=== PATIENT | male | born 1945 | race Caucasian/White ===

== ENCOUNTER 2019-08-06 08:14 | Outpatient (CLI) | payer MEDICARE, OTHER, SELFPAY ==
[2019-08-06] MEDS: goserelin acetate 10.8 mg Implant IM (08:59)
== END 2019-08-06 08:15 | disposition home or self-care (01) ==
LOC: ONCMED 08:21
PROVIDERS: Family Provider Family Medicine; PCP Family Medicine; Visit Provider Nurse Practitioner
DX: C61 Malignant neoplasm of prostate (principal); Z79.818 Long term (current) use of other agents affecting estrogen receptors and estrogen levels
CPT/HCPCS: 96372; 96402; J9202

== ENCOUNTER 2019-11-09 08:49 | Outpatient (CLI) | payer MEDICARE, OTHER, SELFPAY ==
[2019-11-09 10:04] LABS: Basophils % 0.7 %; Eosinophils # 0.3 10^3/uL (0.0-0.8); Eosinophils % 6.4 %; Hematocrit 42.4 % (42.0-52.0); Hemoglobin 14.1 g/dL (11.7-16.6); Lymphocytes # 1.4 10^3/uL (0.8-4.8); Lymphocytes % 32.9 %; Mean Corpuscular HGB Conc 33.3 g/dL (30.0-36.0); Mean Corpuscular Hemoglobin 30.3 pg (28.0-34.0); Mean Platelet Volume 11.8 fL (7.4-10.4); Monocytes # 0.4 10^3/uL (0.2-0.9); Monocytes % 9.6 %; Neutrophils # 2.2 10^3/uL (1.8-7.7); Neutrophils % 50.2 %; Nucleated Red Blood Cells % 0 %; Platelet Count 155 10^3/cmm (130-400); Red Blood Count 4.66 10^6/uL (4.1-5.3); Red Cell Distribution Width 11.9 % (12.1-15.1); White Blood Count 4.4 10^3/uL (4.0-10.0)
[2019-11-09 10:19] LABS: Prostate Specific Antigen < 0.02 ng/mL (0-4)
[2019-11-09 10:31] LABS: Alanine Aminotransferase 21 U/L (0-41); Albumin Level 4.2 g/dL (3.5-5.2); Alkaline Phosphatase 52 IU/L (40-130); Anion Gap 16.1 (5-19); Aspartate Amino Transferase 19 U/L (0-40); Blood Urea Nitrogen 18 mg/dL (8-23); Calcium 9.4 mg/dL (8.5-10.5); Carbon Dioxide 25 mmol/L (22-29); Chloride 103 mmol/L (98-107); Globulin 2.2 g/dL (1.3-4.6); Glucose 77 mg/dL (65-115); Osmolality Calculated 285 mOsm/kg (285-295); Potassium 4.1 mmol/L (3.5-5.1); Sodium 140 mmol/L (136-145); Total Bilirubin 0.7 mg/dL (0.15-1.2); Total Protein 6.4 g/dL (6.6-8.7)
[2019-11-09 10:45] LABS: Testosterone Total < 2.5 ng/dL (193-740)
[2019-11-09] MEDS: lidocaine 1% INJ 20 mL INJECTION (11:03)
--- NOTE | 2019-11-09 11:04 | ONC FU_ITS ---
Dr. Hoang Patient Follow-Up Note Patient: Byron Warner Unit #: [id number]: 1945 Dicatated By: Valeriano Hoang M.D.Date of Visit:Nov 09, 2019 Onc Med Follow-up/Prog Note Chief Complaint: Prostate cancer. History of Present Illness: This is a 74 year-old man with recurrent prostate cancer. He had completed definitive radiation in May 2007 for Alley score 7 (4+3) adenocarcinoma of the prostate, clinical stage II (T2b, N0). He had biopsy proven recurrence in the left lobe of the prostate in July 2009. At that time he was being considered for possible prostatectomy, but it was abandoned when he was confirmed at surgery to have an involved pelvic lymph node. He then began androgen deprivation therapy with Zoladex in combination with Casodex. Along with that he has been receiving Prolia injections for maintenance of bone health. He has otherwise been in good general health. He has no other ongoing medical illnesses. He is a nonsmoker. He is seen for a scheduled visit. He has been feeling good generally. His main complaint is that he has been having more pain in his left knee, and he thinks it is eventually going to have to be replaced. He has good energy, though, and he has normal activity. ECOG score 0. His appetite is good. He has not had fever. He does have hot flashes and sweating, but not as bad. He occasionally has a little cough. He does not complain of shortness of breath or chest pain. He has occasional episodes of nausea and diarrhea, typically associated with eating red meat. His bowels are otherwise okay. He has no other GI complaints. He has frequent urination, which is chronic. He has no other joint or bone pain. He has no focal neurologic symptoms. Medications: Casodex 50 mg - Take 1 Tablet Oral daily, Flonase Suspension Nasal PRN, Multivitamin Adult 2 Tablet Oral daily, Vitamin D 2 Tablet (of 1000 Units) Oral daily, Zoladex 3.6 mg - Use 1 Subcutaneous q 12 weeks Allergies: No Known Allergies. Review of Systems: Constitutional - His energy is good. He has normal activity. Appetite is good and weight is stable. No fever. He has hot flashes and sweating, but they are getting less frequent. ECOG score is 0, ENMT - No sinus congestion/drainage. No mouth sores. No sore throat or difficulty swallowing, Hematologic/Lymphatic - He bruises and bleeds easily, Respiratory - No shortness of breath. No cough. No pleuritic pain or hemoptysis, Cardiovascular - No angina pain. No palpitations, Gastrointestinal - He has occasional episodes of nausea and diarrhea, usually associated with eating red meat. No heartburn or acid reflux. His bowels are otherwise OK. No blood in the stool or black stools, Genitourinary (M) - He has urinary frequency. No dysuria or hematuria. No urgency or incontinence, Musculoskeletal - He has been having more pain in his left knee, Integumentary - No skin complications, Neurologic - No headache or dizziness. He has occasional lightheadedness. No numbness/paresthesias or other focal neurologic symptoms, Psychiatric - No anxiety or depression. No insomnia. Vital Signs: Performed on Nov 09, 2019 09:48 Height - 72.00 in Weight - 255.8 lbs (LOW) BSA - 2.37 sq.m BMI - 34.69 (HIGH) Temperature - 98 F (LOW) Pulse - 61 /min Respiration - 17 /min BP - 112/68 mm(hg) O2 Sat - 98 % Pain - 0 Fatigue - 0 Physical Examination: Constitutional - He looks good generally, Eyes - Sclerae nonicteric. Conjunctivae clear, ENMT - No lesions noted in the oral cavity, Hematologic/Lymphatic - No cervical, clavicular, or axillary adenopathy, Respiratory - Lungs are clear with good air movement bilaterally, Cardiovascular - Heart rhythm is regular. There is no murmur, gallop, or rub noted, Abdomen - Soft. Liver and spleen are not enlarged. There is no abdominal mass or ascites noted and there is no inguinal adenopathy, Extremities - No edema, Neurologic - No focal neurologic deficits noted. Lab/Imaging: Test performed on Nov 09, 2019 09:08 Sodium 140 mmol/L Testosterone, Total < 2.5 ng/dL Potassium 4.1 mmol/L Chloride 103 mmol/L CO2 25 mmol/L Anion Gap 16.1 BUN 18 mg/dL Creatinine 0.8 mg/dL Cr Clearance (Est) 130.9400 mL/min Glucose 77 mg/dL Calcium 9.4 mg/dL Protein, Total 6.4 g/dL Albumin 4.2 g/dL Globulin 2.2 g/dL Bilirubin, Total 0.7 mg/dL ALT (SGPT) 21 U/L AST (SGOT) 19 U/L Alkaline Phosphatase 52 IU/L WBC 4.4 10 3/uL RBC 4.66 10 6/uL HGB 14.1 g/dL HCT 42.4 % MCV 91.0 fL MCH 30.3 pg MCHC 33.3 g/dL RDW 11.9 % Platelet Count 155 10 3/cmm MPV 11.8 fL Neutrophils 2.2 10 3/uL Lymphocytes 1.4 10 3/uL Monocytes 0.4 10 3/uL Eosinophils 0.3 10 3/uL Basophils 0.0 10 3/uL Neutrophil % 50.2 % Lymphocyte % 32.9 % Monocyte % 9.6 % Eosinophil % 6.4 % Basophils % 0.7 % PSA < 0.02 ng/mL Impression: 1. Patient with biopsy proven recurrent prostate cancer in 2009 following definitive radiation, which he had completed in May 2007. 2. His disease has been well-controlled on androgen deprivation therapy. 3. He is at risk for osteoporosis due to the androgen deprivation therapy. He is being treated with Prolia for maintenance of bone health. 4. Some of his previous bloods counts have shown borderline low platelet counts. The cause/clinical significance of that finding has been uncertain. 5. He was found to have vitamin D deficiency. He has had a very good response to androgen deprivation therapy with Zoladex in combination with bicalutamide, which he tolerates very well. During follow-up his PSA level has remained adequately suppressed and his overall clinical status remained stable. Plan: He will be given Zoladex 10.8 mg by subcutaneous injection. He continues bicalutamide 50 mg daily. He will be given Prolia 60 mg by subcutaneous injection for maintenance of bone health. He will continue his vitamin D supplementation. He will be scheduled for a Zoladex injection in 3 months and for a followup visit in 6 months. Signed By: Valeriano Hoang M.D. <<Signature on File>>
[2019-11-09] MEDS: goserelin acetate 10.8 mg Implant IM (11:12)
[2019-11-09] MEDS: denosumab 60 mg SDV SUBCUT (11:12)
[2019-11-09 11:17] LABS: 25 Hydroxy Vitamin D 33 ng/mL (30-100)
== END 2019-11-09 08:50 | disposition home or self-care (01) ==
LOC: ONCMED 08:49
PROVIDERS: Family Provider Family Medicine; PCP Family Medicine; Visit Provider Internal Medicine Medical Oncology
DX: C61 Malignant neoplasm of prostate (principal); C77.5 Secondary and unspecified malignant neoplasm of intrapelvic lymph nodes; E55.9 Vitamin D deficiency, unspecified; Z79.818 Long term (current) use of other agents affecting estrogen receptors and estrogen levels; Z79.899 Other long term (current) drug therapy; Z92.3 Personal history of irradiation
CPT/HCPCS: 36415; 80053; 82306; 84153; 84403; 85025; 96372; 96402; 99214; J0897; J2001; J9202

== ENCOUNTER → 2019-12-09 14:33 | Outpatient (BNVA) | payer MEDICARE, OTHER, SELFPAY | PROVIDERS: Family Provider Family Medicine; PCP Family Medicine; Visit Provider Urology | DX: C61 Malignant neoplasm of prostate (principal); Z98.890 Other specified postprocedural states; Z98.52 Vasectomy status | CPT/HCPCS: 81001 ==

== ENCOUNTER 2020-02-08 08:26 | Outpatient (CLI) | payer MEDICARE, OTHER, SELFPAY ==
[2020-02-08] MEDS: lidocaine 1% INJ 20 mL INJECTION (08:52)
[2020-02-08] MEDS: goserelin acetate 10.8 mg Implant IM (09:05)
[2020-02-08 09:43] LABS: Prostate Specific Antigen < 0.006 ng/mL (0-4)
== END 2020-02-08 08:27 | disposition home or self-care (01) ==
LOC: ONCMED 08:30
PROVIDERS: PCP Family Medicine; Visit Provider Internal Medicine Medical Oncology
DX: C61 Malignant neoplasm of prostate (principal); M81.0 Age-related osteoporosis without current pathological fracture; E55.9 Vitamin D deficiency, unspecified; Z92.3 Personal history of irradiation; Z79.818 Long term (current) use of other agents affecting estrogen receptors and estrogen levels
CPT/HCPCS: 84153; 96372; 96402; J9202

== ENCOUNTER 2020-05-10 09:30 | Outpatient (CLI) | payer MEDICARE, OTHER, SELFPAY ==
[2020-05-10 10:03] LABS: Basophils % 0.6 %; Eosinophils # 0.3 10^3/uL (0.0-0.8); Eosinophils % 6.4 %; Hematocrit 44.2 % (42.0-52.0); Hemoglobin 14.7 g/dL (11.7-16.6); Lymphocytes # 1.3 10^3/uL (0.8-4.8); Lymphocytes % 27.5 %; Mean Corpuscular HGB Conc 33.3 g/dL (30.0-36.0); Mean Corpuscular Hemoglobin 30.4 pg (28.0-34.0); Mean Corpuscular Volume 91.5 fL (80-94); Mean Platelet Volume 11.6 fL (7.4-10.4); Monocytes # 0.4 10^3/uL (0.2-0.9); Monocytes % 7.6 %; Neutrophils # 2.81 10^3/uL (1.8-7.7); Neutrophils % 57.7 %; Nucleated Red Blood Cells % 0 %; Platelet Count 155 10^3/cmm (130-400); Red Blood Count 4.83 10^6/uL (4.1-5.3); Red Cell Distribution Width 11.9 % (12.1-15.1); White Blood Count 4.9 10^3/uL (4.0-10.0)
[2020-05-10 10:32] LABS: Testosterone Total 2.5 ng/dL (193-740)
[2020-05-10 10:33] LABS: Prostate Specific Antigen 0.006 ng/mL (0-4)
[2020-05-10 10:43] LABS: Alanine Aminotransferase 23 U/L (0-41); Albumin Level 4.3 g/dL (3.5-5.2); Alkaline Phosphatase 71 IU/L (40-130); Aspartate Amino Transferase 22 U/L (0-40); Blood Urea Nitrogen 15 mg/dL (8-23); Calcium 9.5 mg/dL (8.5-10.5); Carbon Dioxide 24 mmol/L (22-29); Chloride 103 mmol/L (98-107); Globulin 2.2 g/dL (1.3-4.6); Glucose 112 mg/dL (65-115); Osmolality Calculated 290 mOsm/kg (285-295); Sodium 139 mmol/L (136-145); Total Bilirubin 0.6 mg/dL (0.15-1.2); Total Protein 6.5 g/dL (6.6-8.7)
[2020-05-10 10:44] LABS: Anion Gap 16.1 (5-19); Potassium 4.1 mmol/L (3.5-5.1)
[2020-05-10] MEDS: lidocaine 1% INJ 20 mL INJECTION (11:46)
[2020-05-10] MEDS: goserelin acetate 10.8 mg Implant IM (11:57)
[2020-05-10] MEDS: denosumab 60 mg SDV SUBCUT (11:58)
--- NOTE | 2020-05-15 14:41 | ONC FU_ITS ---
[facility] Patient Note Patient: Byron Warner Unit #: [id number]: 1945 Dictated By: Shauna AlexanderDate of Visit: May 10, 2020 Onc MED Follow-Up/Prog Note Chief Complaint: Prostate cancer. History of Present Illness: Mr Warner is a 74 year-old man with recurrent prostate cancer. He had completed definitive radiation in May 2007 for [place] score 7 (4+3) adenocarcinoma of the prostate, clinical stage II (T2b, N0). He had biopsy proven recurrence in the left lobe of the prostate in July 2009. At that time he was being considered for possible prostatectomy, but it was abandoned when he was confirmed at surgery to have an involved pelvic lymph node. He then began androgen deprivation therapy with Zoladex in combination with Casodex. Along with that he has been receiving Prolia injections for maintenance of bone health. He has otherwise been in good general health. He has no other ongoing medical illnesses. He is a nonsmoker. Mr. Warner is here today for follow-up. He is due for Prolia and Zoladex. He states overall he feels really good. He has no new concerns. He is very active. He states his appetite is good. He denies any fever or chills. He has had no known Covid exposure, symptoms or personal testing. He states his breathing is good. His bowels and bladder are normal for him. He does not complain of any abnormal urinary frequency at night. He has had no hesitancy that he is aware of. He denies any lower extremity edema. He denies pain. He states he tolerated the Prolia shot well last time he did not recall any achiness or muscle pain. His ECOG is 0. Past Medical History: Past Surgical History: FLU VAC in 2019 Umbilical hernia in 2004 Zenker removal in 2004 Bunion removal in 1999 Allergies: No Known Allergies. Medications: Casodex 50 mg - Take 1 Tablet Oral daily Flonase Suspension Nasal PRN Multivitamin Adult 2 Tablet Oral daily Vitamin D 2 Tablet (of 1000 Units) Oral daily Zoladex 3.6 mg - Use 1 Subcutaneous q 12 weeks Family History: Mr. Warner's mother at age 89: esophageal cancer. Mr. Warner's father at age 88: chronic obstructive pulmonary disease. His paternal grandmother at age 94. His paternal grandfather at age 96. 1 uncle with prostate cancer with bone involvement. 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 Mr. Warner has never smoked. He drinks occasionally. Mr. Warner reports the following support systems: lives with spouse, significant other, family, or friends, lives in own house, and adequate transportation available for expected visits. His diet consists of regular meals. He indicates his activity level as: daily activities. Review Of Symptoms: Constitutional Denies fevers, chills, night sweats, excessive fatigue or weight loss. Allergic/Immunologic No reactions. Eyes Denies significant visual changes. No diplopia. No amaurosis. ENMT Denies changes in hearing, sore throat, mouth sores, difficulty or changes in swallowing ability, and/or sinus drainage. Hematologic/Lymphatic Denies easy bruising or bleeding. The patient denies any tender or palpable lymph nodes. Respiratory Denies dyspnea on exertion-unless go up the stairs too fast , Denies chest pain, cough or hemoptysis. Denies orthopnea. Cardiovascular Denies anginal chest pain, palpitations or orthopnea. Gastrointestinal Denies nausea, vomiting, diarrhea, GI bleeding, or constipation. Denies change in bowel habits and/or stool color, no heartburn or early satiety. Genitourinary (M) Denies hematuria, dysuria, increased frequency, urgency, hesitancy or incontinence. Musculoskeletal Denies joint pain, swelling or redness. No decreased range of motion. Integumentary Denies chronic rashes, inflammation, ulcerations or skin changes. Neurologic Denies headache, blurred vision, and no areas of focal weakness or numbness. Normal gait. No sensory problems. Psychiatric Denies insomnia, depression, sherine or mood swings. Vital Signs: Performed on May 10, 2020 11:14 Height - 72.00 in Weight - 256.4 lbs (HIGH) BSA - 2.37 sq.m BMI - 34.77 (HIGH) Temperature - 97.6 F (LOW) Pulse - 62 /min Respiration - 16 /min BP - 138/79 mm(hg) O2 Sat - 98 % Pain - 0,0 - Fully active, able to carry on all predisease activities without restrictions. (ECOG) Physical Examination: Constitutional Alert, oriented, no acute distress. Skin pink, warm and dry. Head Normocephalic; atraumatic. Left temporal area has a dark brown lesion approximately 1 cm in diameter. Non scaling and no drainage. No change per patient. Eyes Conjunctivae and sclerae are clear and without icterus. Pupils are reactive and equal. Neck Supple without masses or thyromegaly. No jugular venous distension. Hematologic/Lymphatic No petechiae or purpura. Respiratory Lungs are clear to auscultation without rhonchi or wheezing. Cardiovascular Regular rate and rhythm of heart without murmurs,clicks, gallops or rubs. Back/Spine Non-tender to palpation. Extremities No visible deformities, no cyanosis, clubbing or edema. Musculoskeletal No tenderness or swelling, normal range of motion without obvious weakness. Integumentary No rashes or lesions. Neurologic No sensory or motor deficits, normal cerebellar function, normal gait. Psychiatric Alert and oriented times three. Coherent speech. Verbalizes understanding of our discussions today. Laboratory:Test performed on May 10, 2020 09:44 Sodium 139 mmol/L Testosterone, Total 2.5 ng/dL Potassium 4.1 mmol/L Chloride 103 mmol/L CO2 24 mmol/L Anion Gap 16.1 BUN 15 mg/dL Creatinine 0.8 mg/dL Cr Clearance (Est) 131.24 mL/min Glucose 112 mg/dL Osmolality - Calculated 290 mOsm/kg Calcium 9.5 mg/dL Protein, Total 6.5 g/dL Albumin 4.3 g/dL Globulin 2.2 g/dL Bilirubin, Total 0.6 mg/dL ALT (SGPT) 23 U/L AST (SGOT) 22 U/L Alkaline Phosphatase 71 IU/L WBC 4.9 10 3/uL RBC 4.83 10 6/uL HGB 14.7 g/dL HCT 44.2 % MCV 91.5 fL MCH 30.4 pg MCHC 33.3 g/dL RDW 11.9 % Platelet Count 155 10 3/cmm MPV 11.6 fL Neutrophils 2.81 10 3/uL Lymphocytes 1.3 10 3/uL Monocytes 0.4 10 3/uL Eosinophils 0.3 10 3/uL Basophils 0.0 10 3/uL Neutrophil % 57.7 % Lymphocyte % 27.5 % Monocyte % 7.6 % Eosinophil % 6.4 % Basophils % 0.6 % NRBC % 0 % PSA 0.006 ng/mL Impression: 1. Patient with biopsy proven recurrent prostate cancer in 2009 following definitive radiation, which he had completed in May 2007. 2. His disease has been well-controlled on androgen deprivation therapy. 3. He is at risk for osteoporosis due to the androgen deprivation therapy. He is being treated with Prolia for maintenance of bone health. 4. Some of his previous bloods counts have shown borderline low platelet counts. The cause/clinical significance of that finding has been uncertain. 5. He was found to have vitamin D deficiency. He has had a very good response to androgen deprivation therapy with Zoladex in combination with bicalutamide, which he tolerates very well. During follow-up his PSA level has remained adequately suppressed and his overall clinical status remained stable. Plan: 1. Proceed with Zoladex 10 mg subcutaneous and continue every 3 months. 2. Continue bicalutamide 50 mg daily. 3. 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 I do not see a recent bone density study on him we will need to consider that at his 6-month follow-up. He will also continue his calcium vitamin D supplementation. He has a history of vitamin D deficiency. 4. Labs from today were reviewed in detail and discussed with Mr. Warner and a copy was given to him. WBC 4.9, hemoglobin 14.7, platelets 255,000 ANC is 2800. Potassium 4.1 creatinine 0.8 LFTs are normal and PSA is 0.006. 5. He states he already has gotten his flu shot for the year. 6. We will plan to see him back for follow-up in 6 months with CBC, CMP, PSA, testosterone and vitamin D level. He will be due for Prolia at that time. He will continue the Zoladex every 3 months. 7. Mr. Warner was instructed to contact us in the interim should questions or problems arise. Signed By: Shauna Alexander-SARA, AOCNP Valeriano Hoang MD <<Signature on File>>
== END 2020-05-10 09:31 | disposition home or self-care (01) ==
LOC: ONCMED 09:33
PROVIDERS: PCP Family Medicine; Visit Provider Nurse Practitioner
DX: C61 Malignant neoplasm of prostate (principal); M81.8 Other osteoporosis without current pathological fracture; Z79.818 Long term (current) use of other agents affecting estrogen receptors and estrogen levels; T45.1X5A Adverse effect of antineoplastic and immunosuppressive drugs, initial encounter; Z92.3 Personal history of irradiation
CPT/HCPCS: 36415; 80053; 84153; 84403; 85025; 96372; 96402; 99214; J0897; J9202

== ENCOUNTER 2020-08-11 12:02 | Outpatient (CLI) | payer MEDICARE, OTHER, SELFPAY ==
[2020-08-11] MEDS: lidocaine 1% INJ 20 mL INJECTION (13:05)
[2020-08-11] MEDS: goserelin acetate 10.8 mg Implant IM (13:15)
--- NOTE | 2020-08-14 11:43 | ONC FU_ITS ---
Dr. Hoang Patient Follow-Up Note Patient: Byron Warner Unit #: [id number]: 1945 Dicatated By: Valeriano Hoang M.D.Date of Visit:Aug 11, 2020 Onc Med Follow-up/Prog Note Chief Complaint: Prostate cancer. History of Present Illness: This is a 75 year-old man with recurrent prostate cancer. He had completed definitive radiation in May 2007 for Alley score 7 (4+3) adenocarcinoma of the prostate, clinical stage II (T2b, N0). He had biopsy proven recurrence in the left lobe of the prostate in July 2009. At that time he was being considered for possible prostatectomy, but it was abandoned when he was confirmed at surgery to have an involved pelvic lymph node. He then began androgen deprivation therapy with Zoladex in combination with Casodex. He has had a very good clinical response. Along with the androgen deprivation therapy, he has been receiving Prolia injections for maintenance of bone health. He has otherwise been in good general health. He has no other ongoing medical illnesses. He is a nonsmoker. He is seen for a scheduled visit. He has been feeling good generally, though he says his energy does run out by about 4 PM. He still has normal activity. ECOG score is 0. He has good appetite. He has not had fever. He does have hot flashes and sweating, but not too bad. He does have some shortness of breath with activity and he has a little bit of cough. He does not complain of chest pain. He has no GI or complaints. He continues to have pain in his left knee. He has no focal neurologic symptoms. Medications: Casodex 50 mg - Take 1 Tablet Oral daily, Flonase Suspension Nasal PRN, Multivitamin Adult 2 Tablet Oral daily, Vitamin D 2 Tablet (of 1000 Units) Oral daily, Zoladex 3.6 mg - Use 1 Subcutaneous q 12 weeks Allergies: No Known Allergies. Vital Signs: Performed on Aug 11, 2020 12:30 Height - 72.00 in Weight - 259 lbs (HIGH) BSA - 2.38 sq.m BMI - 35.13 (HIGH) Temperature - 97.0 F (LOW) Pulse - 74 /min Respiration - 18 /min BP - 120/64 mm(hg) O2 Sat - 97 % Pain - 0 Fatigue - 0 Physical Examination: Constitutional - He looks good generally, Eyes - Sclerae nonicteric. Conjunctivae clear, ENMT - No lesions noted in the oral cavity, Hematologic/Lymphatic - No cervical, clavicular, or axillary adenopathy, Respiratory - Lungs are clear with good air movement bilaterally, Cardiovascular - Heart rhythm is regular. There is no murmur, gallop, or rub noted, Abdomen - Soft. Liver and spleen are not enlarged. There is no abdominal mass or ascites noted and there is no inguinal adenopathy, Extremities - Slight edema, Neurologic - No focal neurologic deficits noted. Lab/Imaging: Test performed on Aug 09, 2020 11:32 Testosterone 19 ng/dL Glucose 88 mg/dL Vitamin D (25-Hydroxy) 29 ng/mL BUN 17 mg/dL Creatinine 0.9 mg/dL Cr Clearance (Est) 116.0300 mL/min BUN/Creatinine Ratio 18.89 Absolute Value Sodium 139 mmol/L Potassium 4.6 mmol/L Chloride 103 mmol/L CO2 32 mmol/L Calcium 9.4 mg/dL Protein, Total 7 g/dL Albumin 4.1 g/dL Globulin 2.9 g/dL Bilirubin, Total 1 mg/dL Alkaline Phosphatase 49 IU/L AST (SGOT) 30 IU/L ALT (SGPT) 34 IU/L WBC 4.5 10^9/L RBC 4.87 10^12/L HGB 15 g/dL HCT 45.1 % MCV 92.6 fl MCH 30.8 pg MCHC 33.2 g/dL RDW 13.4 % Platelet Count 147 10^9/L Neutrophils (Gran) 2.115 10^9/L Lymphocytes 1.665 10^9/L Monocytes 0.432 10^9/L PSA 0.1 ng/mL Historic Problem List: 1. Recurrent prostate cancer, documented by biopsy in 2009 following definitive radiation, which he had completed in May 2007. 2. His disease has been well-controlled on androgen deprivation therapy. 3. He is at risk for osteoporosis due to the androgen deprivation therapy. He is being treated with Prolia for maintenance of bone health. 4. He has had orderline low platelet count. The cause/clinical significance has been uncertain. It has been stable on followup. 5. He was found to have vitamin D deficiency. Problems Addressed with this Encounter and Plan: 1. [place] score 7 (4+3) adenocarcinoma of the prostate, stage II (T2, N0, M0), for which he completed definitive radiation in May 2007. In 2009 he had biopsy-proven recurrence in the prostate and he was confirmed at surgery to have an involved pelvic lymph node. He then began androgen deprivation therapy with Zoladex in combination with bicalutamide. He had a very good clinical response, and thus far during follow-up there has been no evidence of disease progression. He continues to do well clinically. He tolerates the treatment well, and his PSA level remains adequately suppressed. He will be given Zoladex 10.8 mg by subcutaneous injection. He continues bicalutamide 50 mg daily. He will be scheduled for a Zoladex injection in 3 months and for a followup visit in 6 months. 2. He has had vitamin D deficiency and he is at risk for osteoporosis due to long-term androgen deprivation. He will be given Prolia 60 mg by subcutaneous injection for maintenance of bone health. He will continue his vitamin D supplementation. Signed By: Valeriano Hoang M.D. <<Signature on File>>
== END 2020-08-11 12:03 | disposition home or self-care (01) ==
PROVIDERS: PCP Family Medicine; Visit Provider Internal Medicine Medical Oncology
DX: C61 Malignant neoplasm of prostate (principal); M81.0 Age-related osteoporosis without current pathological fracture; Z79.818 Long term (current) use of other agents affecting estrogen receptors and estrogen levels; Z79.899 Other long term (current) drug therapy
CPT/HCPCS: 96372; 96402; 99214; J9202

== ENCOUNTER 2020-11-23 11:38 | Outpatient (CLI) | payer MEDICARE, OTHER, SELFPAY ==
[2020-11-23 12:15] LABS: Basophils % 0.6 %; Eosinophils # 0.2 10^3/uL (0.0-0.8); Eosinophils % 4.8 %; Hematocrit 42.1 % (42.0-52.0); Hemoglobin 14.3 g/dL (11.7-16.6); Lymphocytes # 1.4 10^3/uL (0.8-4.8); Lymphocytes % 29.5 %; Mean Corpuscular Hemoglobin 31.2 pg (28.0-34.0); Mean Corpuscular Volume 91.7 fL (80-94); Mean Platelet Volume 11.3 fL (7.4-10.4); Monocytes # 0.5 10^3/uL (0.2-0.9); Monocytes % 10.3 %; Neutrophils # 2.63 10^3/uL (1.8-7.7); Neutrophils % 54.4 %; Nucleated Red Blood Cells % 0 %; Platelet Count 169 10^3/cmm (130-400); Red Blood Count 4.59 10^6/uL (4.1-5.3); Red Cell Distribution Width 12.2 % (12.1-15.1); White Blood Count 4.8 10^3/uL (4.0-10.0)
[2020-11-23 12:45] LABS: Testosterone Total 2.5 ng/dL (193-740)
[2020-11-23 12:48] LABS: Prostate Specific Antigen 0.006 ng/mL (0-4)
[2020-11-23 12:57] LABS: Alanine Aminotransferase 24 U/L (0-41); Albumin Level 4.3 g/dL (3.5-5.2); Alkaline Phosphatase 62 IU/L (40-130); Anion Gap 14.1 (5-19); Aspartate Amino Transferase 21 U/L (0-40); Blood Urea Nitrogen 19 mg/dL (8-23); Calcium 9.4 mg/dL (8.5-10.5); Carbon Dioxide 28 mmol/L (22-29); Chloride 102 mmol/L (98-107); Globulin 2.2 g/dL (1.3-4.6); Glucose 85 mg/dL (65-115); Osmolality Calculated 292 mOsm/kg (285-295); Potassium 4.1 mmol/L (3.5-5.1); Sodium 140 mmol/L (136-145); Total Bilirubin 0.8 mg/dL (0.15-1.2); Total Protein 6.5 g/dL (6.6-8.7)
[2020-11-23] MEDS: lidocaine 1% INJ 20 mL INJECTION (13:58)
[2020-11-23] MEDS: denosumab 60 mg SDV SUBCUT (14:01)
[2020-11-23] MEDS: goserelin acetate 10.8 mg Implant IM (14:10)
--- NOTE | 2020-11-27 10:03 | ONC FU_ITS ---
Dr. Hoang Patient Follow-Up Note Patient: Byron Warner Unit #: [id number]: [id number] Dicatated By: Valeriano Hoang M.D.Date of Visit:Nov 23, 2020 Onc Med Follow-up/Prog Note Chief Complaint: Prostate cancer. History of Present Illness: This is a 75 year-old man with recurrent prostate cancer. He had completed definitive radiation in May 2007 for Alley score 7 (4+3) adenocarcinoma of the prostate, clinical stage II (T2b, N0). He had biopsy proven recurrence in the left lobe of the prostate in July 2009. At that time he was being considered for possible prostatectomy, but it was abandoned when he was confirmed at surgery to have an involved pelvic lymph node. He then began androgen deprivation therapy with Zoladex in combination with Casodex. He has had a very good clinical response. Along with the androgen deprivation therapy, he has been receiving Prolia injections for maintenance of bone health. He has otherwise been in good general health. He has some degenerative arthritis and he has allergic rhinitis. He has no other ongoing medical illnesses. He is a nonsmoker. He is seen for a follow-up visit. He has been feeling good generally. His energy is pretty good. He still has normal activity. ECOG score is 0. Appetite also is good. He has not had fever or night sweats. He does have some hot flashes, but not as often. He occasionally has shortness of breath. He does not complain of cough and he has not been having chest pain. He is still prone to having loose stools, particularly when he eats beef. He has no other GI or complaints. He has pain in his left knee, he says his left knee needs to be replaced. He does not complain of headache. He has occasional orthostatic lightheadedness. He has no focal neurologic symptoms. Medications: Casodex 50 mg - Take 1 Tablet Oral daily, Flonase Suspension Nasal PRN, Multivitamin Adult 2 Tablet Oral daily, Vitamin D 2 Tablet (of 1000 Units) Oral daily, Zoladex 3.6 mg - Use 1 Subcutaneous q 12 weeks Allergies: No Known Allergies. Vital Signs: Performed on Nov 23, 2020 13:34 Height - 72.00 in Weight - 259.2 lbs (HIGH) BSA - 2.38 sq.m BMI - 35.15 (HIGH) Temperature - 97.1 F (LOW) Pulse - 60 /min Respiration - 17 /min BP - 130/82 mm(hg) O2 Sat - 97 % Pain - 0 Physical Examination: Constitutional - He looks good generally, Eyes - Sclerae nonicteric. Conjunctivae clear, ENMT - No lesions noted in the oral cavity, Hematologic/Lymphatic - No cervical, clavicular, or axillary adenopathy, Respiratory - Lungs are clear with good air movement bilaterally, Cardiovascular - Heart rhythm is regular. There is a II/ systolic murmur. There is no gallop or rub noted, Abdomen - Soft. Liver and spleen are not enlarged. There is no abdominal mass or ascites noted and there is no inguinal adenopathy, Extremities - Slight edema, Neurologic - No focal neurologic deficits noted. Lab/Imaging: Test performed on Nov 23, 2020 11:54 Sodium 140 mmol/L Testosterone, Total 2.5 ng/dL Potassium 4.1 mmol/L Chloride 102 mmol/L CO2 28 mmol/L Anion Gap 14.1 BUN 19 mg/dL Creatinine 0.8 mg/dL Cr Clearance (Est) 130.64 mL/min Glucose 85 mg/dL Osmolality - Calculated 292 mOsm/kg Calcium 9.4 mg/dL Protein, Total 6.5 g/dL Albumin 4.3 g/dL Globulin 2.2 g/dL Bilirubin, Total 0.8 mg/dL ALT (SGPT) 24 U/L AST (SGOT) 21 U/L Alkaline Phosphatase 62 IU/L WBC 4.8 10 3/uL RBC 4.59 10 6/uL HGB 14.3 g/dL HCT 42.1 % MCV 91.7 fL MCH 31.2 pg MCHC 34.0 g/dL RDW 12.2 % Platelet Count 169 10 3/cmm MPV 11.3 fL Neutrophils 2.63 10 3/uL Lymphocytes 1.4 10 3/uL Monocytes 0.5 10 3/uL Eosinophils 0.2 10 3/uL Basophils 0.0 10 3/uL Neutrophil % 54.4 % Lymphocyte % 29.5 % Monocyte % 10.3 % Eosinophil % 4.8 % Basophils % 0.6 % NRBC % 0 % PSA 0.006 ng/mL Problem List: 1. Recurrent prostate cancer, documented by biopsy in 2009 following definitive radiation, which he had completed in May 2007. 2. His disease has been well-controlled on androgen deprivation therapy. 3. He is at risk for osteoporosis due to the androgen deprivation therapy. He is being treated with Prolia for maintenance of bone health. 4. He has had orderline low platelet count. The cause/clinical significance has been uncertain. It has been stable on followup. 5. He was found to have vitamin D deficiency. Problems Addressed with this Encounter and Plan: 1. Patient with Alley score 7 (4+3) adenocarcinoma of the prostate, stage II (T2, N0, M0), for which he completed definitive radiation in May 2007. In 2009 he had biopsy-proven recurrence in the prostate and he was confirmed at surgery to have an involved pelvic lymph node. He then began androgen deprivation therapy with Zoladex in combination with bicalutamide. He had a very good clinical response, and thus far during follow-up there has been no evidence of disease progression. He continues to do well clinically. He tolerates the treatment well, and his PSA level remains adequately suppressed. He will be given Zoladex 10.8 mg by subcutaneous injection. He continues bicalutamide 50 mg daily. He will be scheduled for a Zoladex injection in 3 months and for a followup visit in 6 months. 2. He has had vitamin D deficiency and he is at risk for osteoporosis due to long-term androgen deprivation. He will be given Prolia 60 mg by subcutaneous injection for maintenance of bone health. He will continue his vitamin D supplementation. Signed By: Valeriano Hoang M.D. <<Signature on File>>
== END 2020-11-23 11:39 | disposition home or self-care (01) ==
LOC: ONCMED 11:40
PROVIDERS: PCP Family Medicine; Visit Provider Internal Medicine Medical Oncology
DX: C61 Malignant neoplasm of prostate (principal); M81.0 Age-related osteoporosis without current pathological fracture; D69.1 Qualitative platelet defects; E55.9 Vitamin D deficiency, unspecified; Z79.818 Long term (current) use of other agents affecting estrogen receptors and estrogen levels; Z79.899 Other long term (current) drug therapy
CPT/HCPCS: 80053; 84153; 84403; 85025; 96372; 96402; 99214; J0897; J9202

== ENCOUNTER 2021-02-22 11:09 | Outpatient (CLI) | payer MEDICARE, OTHER, SELFPAY ==
[2021-02-22 12:27] LABS: Prostate Specific Antigen 0.006 ng/mL (0-4)
[2021-02-22] MEDS: lidocaine 1% INJ 20 mL INJECTION (13:11)
[2021-02-22] MEDS: goserelin acetate 10.8 mg Implant SUBCUT (13:21)
== END 2021-02-22 11:10 | disposition home or self-care (01) ==
PROVIDERS: PCP Family Medicine; Visit Provider Internal Medicine Medical Oncology
DX: Z51.11 Encounter for antineoplastic chemotherapy (principal); C61 Malignant neoplasm of prostate; Z79.899 Other long term (current) drug therapy; Z92.3 Personal history of irradiation
CPT/HCPCS: 36415; 84153; 96372; 96402; J9202

== ENCOUNTER 2021-03-10 10:18 | Outpatient (RCR) | payer MEDICARE, OTHER, SELFPAY | END 2021-03-28 23:59 | disposition home or self-care (01) | LOC: SPT 10:18 | PROVIDERS: PCP Family Medicine; Visit Provider Student in an Organized Health Care Education/Training Program | DX: Z47.1 Aftercare following joint replacement surgery (principal); Z96.652 Presence of left artificial knee joint | CPT/HCPCS: 97110; 97161 ==

== ENCOUNTER 2021-03-29 06:00 | Outpatient (RCR) | payer MEDICARE, OTHER, SELFPAY | END 2021-04-10 23:00 | disposition home or self-care (01) | LOC: SPT 06:00 | PROVIDERS: PCP Family Medicine; Visit Provider Student in an Organized Health Care Education/Training Program | DX: Z47.1 Aftercare following joint replacement surgery (principal); Z96.652 Presence of left artificial knee joint | CPT/HCPCS: 97110 ==

== ENCOUNTER 2021-04-25 09:14 | Outpatient (CLI) | payer OTHER, MEDICARE, SELFPAY ==
--- NOTE | 2021-04-25 09:30 | MR_ITS ---
WS: [id number] MRI BRAIN WITH HIGH-RESOLUTION IMAGING THROUGH THE INTERNAL AUDITORY CANALS WITHOUT AND WITH CONTRAST HISTORY: Nonspecific hearing loss. Chronic hearing loss. COMPARISON: None available. TECHNIQUE: Multiplanar, multisequence imaging is performed through the brain. Additional 3 mm imaging performed in multiple planes through the internal auditory canal. Postcontrast imaging with 17 ml's of MultiHance. No acute intracranial hemorrhage, midline shift, edema or mass effect. There are a few scattered T2 and FLAIR signal hyperintensities within the white matter. No prior infa rct. Very mild cerebral atrophy. No enhancing masses. Ventricles and extra-axial spaces are normal. No inferior displacement of cerebellar tonsils. Clivus and pituitary gland are normal. Internal and external auditory canals: Unremarkable. Cranial nerves VII and VIII complexes: Unremarkable. No enhancement or mass. Cerebellopontine angles: Normal. Paranasal sinuses: Normal. Mastoid air cells: Normal. Calvarium and scalp: Normal. Visualized [place] and dural venous sinuses demonstrate no abnormality. MR/MR iac's wo/w con* [id number] IMPRESSION: 1. No mass or abnormality at the internal auditory canals. 2. Mild cerebral atrophy and mild chronic microvascular ischemic disease. 3. No enhancing masses.
== END 2021-04-25 09:15 | disposition home or self-care (01) ==
LOC: RADSHAW 09:16
PROVIDERS: PCP Family Medicine; Visit Provider Specialist
DX: H91.90 Unspecified hearing loss, unspecified ear (principal)
CPT/HCPCS: 70553; A9579

== ENCOUNTER 2021-05-24 11:19 | Outpatient (CLI) | payer OTHER, MEDICARE, SELFPAY ==
[2021-05-24 12:05] LABS: Basophils % 0.5 %; Eosinophils # 0.2 10^3/uL (0.0-0.8); Eosinophils % 3.9 %; Hematocrit 44.4 % (42.0-52.0); Hemoglobin 14.9 g/dL (11.7-16.6); Lymphocytes # 1.6 10^3/uL (0.8-4.8); Lymphocytes % 26.5 %; Mean Corpuscular HGB Conc 33.6 g/dL (30.0-36.0); Mean Corpuscular Hemoglobin 30.3 pg (28.0-34.0); Mean Corpuscular Volume 90.2 fl (80-94); Mean Platelet Volume 11.1 fL (7.4-10.4); Monocytes # 0.6 10^3/uL (0.2-0.9); Monocytes % 9.3 %; Neutrophils # 3.54 10^3/uL (1.8-7.7); Neutrophils % 59.6 %; Nucleated Red Blood Cells % 0 %; Platelet Count 172 10^3/cmm (130-400); Red Blood Count 4.92 10^6/uL (4.1-5.3); Red Cell Distribution Width 11.9 % (12.1-15.1); White Blood Count 5.9 10^3/uL (4.0-10.0)
[2021-05-24 13:11] LABS: Prostate Specific Antigen 0.006 ng/mL (0-4)
[2021-05-24 13:20] LABS: Alanine Aminotransferase 33 U/L (0-41); Albumin Level 4.3 g/dL (3.5-5.2); Alkaline Phosphatase 59 IU/L (40-130); Anion Gap 19.2 (5-19); Aspartate Amino Transferase 24 U/L (0-40); Blood Urea Nitrogen 14 mg/dL (8-23); Carbon Dioxide 24 mmol/L (22-29); Chloride 100 mmol/L (98-107); Globulin 2.4 g/dL (1.3-4.6); Glucose 83 mg/dL (65-115); Osmolality Calculated 288 mOsm/kg (285-295); Potassium 4.2 mmol/L (3.5-5.1); Sodium 139 mmol/L (136-145); Total Bilirubin 0.6 mg/dL (0.15-1.2); Total Protein 6.7 g/dL (6.6-8.7)
[2021-05-24] MEDS: goserelin acetate 10.8 mg Implant SUBCUT (15:00)
[2021-05-24] MEDS: lidocaine 1% INJ 20 mL INJECTION (15:00)
[2021-05-24] MEDS: denosumab 60 mg SDV SUBCUT (15:00)
[2021-05-27 14:57] LABS: Vit D 1,25 (Oh)2, Total 26 pg/mL (18-72); Vit D2 1,25 (Oh)2 <8 pg/mL; Vit D3 1,25 (Oh)2 26 pg/mL
--- NOTE | 2021-05-28 10:04 | ONC FU_ITS ---
Dr. Hoang Patient Follow-Up Note Patient: Byron Warner Unit #: [id number]: 1945 Dicatated By: Valeriano Hoang M.D.Date of Visit:May 24, 2021 Onc Med Follow-up/Prog Note Chief Complaint: Prostate cancer. History of Present Illness: This is a 75 year-old man with recurrent prostate cancer. He had completed definitive radiation in May 2007 for Alley score 7 (4+3) adenocarcinoma of the prostate, clinical stage II (T2b, N0). He had biopsy proven recurrence in the left lobe of the prostate in July 2009. At that time he was being considered for possible prostatectomy, but it was abandoned when he was confirmed at surgery to have an involved pelvic lymph node. He then began androgen deprivation therapy with Zoladex in combination with Casodex. He has had a very good clinical response. Along with the androgen deprivation therapy, he has been receiving Prolia injections for maintenance of bone health. He has otherwise been in good general health. He has some degenerative arthritis and he has allergic rhinitis. He has no other ongoing medical illnesses. He is a nonsmoker. He is seen for a follow-up visit. He indicates that he underwent left total knee arthroplasty 9 or 10 weeks ago. His activity remains somewhat limited following that procedure, but he has had no complications with it. ECOG score is 1. He has good appetite. He has not had fever. He has just a little bit of hot flashes and sweating. He occasionally has to cough up phlegm when he first gets up in the morning. He does not complain of shortness of breath or chest pain. He is prone to having diarrhea with spicy foods or red meat. He has no other GI or complaints. He still has some pain in the left knee. He has no other joint or bone pain. He does not complain of headache or dizziness. Since the surgery has been having some numbness on the left side of his knee/leg. He has no other focal neurologic symptoms. Medications: Casodex 50 mg - Take 1 Tablet Oral daily, Flonase Suspension Nasal PRN, Multivitamin Adult 2 Tablet Oral daily, Vitamin D 2 Tablet (of 1000 Units) Oral daily, Zoladex 3.6 mg - Use 1 Subcutaneous q 12 weeks Allergies: No Known Allergies. Vital Signs: Performed on May 24, 2021 14:06 Height - 72.00 in Weight - 257.6 lbs (LOW) BSA - 2.37 sq.m BMI - 34.94 (HIGH) Temperature - 97.2 F (LOW) Pulse - 82 /min Respiration - 18 /min BP - 167/84 mm(hg) (HIGH) O2 Sat - 98 % Pain - 0 Fatigue - 0 Physical Examination: Constitutional - He looks good generally, Eyes - Sclerae nonicteric. Conjunctivae clear, ENMT - No lesions noted in the oral cavity, Hematologic/Lymphatic - No cervical, clavicular, or axillary adenopathy, Respiratory - Lungs are clear with good air movement bilaterally, Cardiovascular - Heart rhythm is regular. There is no murmur, gallop, or rub noted, Abdomen - Soft. Liver and spleen are not enlarged. There is no abdominal mass or ascites noted and there is no inguinal adenopathy, Extremities - No edema, Neurologic - No focal neurologic deficits noted. Lab/Imaging: Test performed on May 24, 2021 11:40 Sodium 139 mmol/L Testosterone, Total 5.0 ng/dL Vitamin D (1, 25 Dihydroxy) 26 pg/mL Potassium 4.2 mmol/L Vitamin D3 (1, 25 Dihydroxy) 26 pg/mL Chloride 100 mmol/L Vitamin D2 (1, 25 Dihydroxy) < 8 pg/mL CO2 24 mmol/L Anion Gap 19.2 BUN 14 mg/dL Creatinine 0.7 mg/dL Cr Clearance (Est) 148.38 mL/min Glucose 83 mg/dL Osmolality - Calculated 288 mOsm/kg Calcium 10.0 mg/dL Protein, Total 6.7 g/dL Albumin 4.3 g/dL Globulin 2.4 g/dL Bilirubin, Total 0.6 mg/dL ALT (SGPT) 33 U/L AST (SGOT) 24 U/L Alkaline Phosphatase 59 IU/L WBC 5.9 10 3/uL RBC 4.92 10 6/uL HGB 14.9 g/dL HCT 44.4 % MCV 90.2 fl MCH 30.3 pg MCHC 33.6 g/dL RDW 11.9 % Platelet Count 172 10 3/cmm MPV 11.1 fL Neutrophils 3.54 10 3/uL Lymphocytes 1.6 10 3/uL Monocytes 0.6 10 3/uL Eosinophils 0.2 10 3/uL Basophils 0.0 10 3/uL Neutrophil % 59.6 % Lymphocyte % 26.5 % Monocyte % 9.3 % Eosinophil % 3.9 % Basophils % 0.5 % NRBC % 0 % PSA 0.006 ng/mL Problem List: 1. Recurrent prostate cancer, documented by biopsy in 2009 following definitive radiation, which he had completed in May 2007. 2. He is at risk for osteoporosis due to the androgen deprivation therapy. He is being treated with Prolia for maintenance of bone health. 3. He has had a borderline low platelet count. The cause/clinical significance has been uncertain. It has been stable on followup. 4. Degenerative arthritis. 5. Vitamin D deficiency. Problems Addressed with this Encounter and Plan: 1. Patient with Alley score 7 (4+3) adenocarcinoma of the prostate, stage II (T2, N0, M0), for which he completed definitive radiation in May 2007. In 2009 he had biopsy-proven recurrence in the prostate and he was confirmed at surgery to have an involved pelvic lymph node. He then began androgen deprivation therapy with Zoladex in combination with bicalutamide. He had a very good clinical response, and thus far during follow-up there has been no evidence of disease progression. Overall, he has been doing well clinically. At this point he is still recovering from a left total knee arthroplasty procedure 9 or 10 weeks ago, but it has been uncomplicated. He tolerates his androgen deprivation therapy very well, and thus far there has been no evidence of progression of the prostate cancer. He will be given Zoladex 10.8 mg by subcutaneous injection. He continues bicalutamide 50 mg daily. He will be scheduled for a Zoladex injection in 3 months and for a followup visit in 6 months. 2. He has at risk for osteoporosis due to the androgen deprivation therapy. He has been on supportive therapy with Prolia for maintenance of bone health. He will be given Prolia 60 mg by subcutaneous injection today. Signed By: Valeriano Hoang M.D. <<Signature on File>>
== END 2021-05-24 11:20 | disposition home or self-care (01) ==
PROVIDERS: PCP Family Medicine; Visit Provider Internal Medicine Medical Oncology
DX: C61 Malignant neoplasm of prostate (principal); M81.0 Age-related osteoporosis without current pathological fracture; D69.6 Thrombocytopenia, unspecified; M19.90 Unspecified osteoarthritis, unspecified site; E55.9 Vitamin D deficiency, unspecified; Z79.899 Other long term (current) drug therapy; Z79.818 Long term (current) use of other agents affecting estrogen receptors and estrogen levels
CPT/HCPCS: 80053; 82652; 84153; 84403; 85025; 96372; 96402; 99215; J0897; J9202

== ENCOUNTER → 2021-07-05 15:22 | Outpatient (BNVA) | payer OTHER, MEDICARE, SELFPAY | PROVIDERS: PCP Family Medicine; Referring Provider Nurse Practitioner; Visit Provider Podiatrist Foot & Ankle Surgery | DX: M79.672 Pain in left foot (principal); M79.671 Pain in right foot; M21.611 Bunion of right foot; M77.31 Calcaneal spur, right foot; M77.32 Calcaneal spur, left foot; Z98.1 Arthrodesis status | CPT/HCPCS: 73630 ==

== ENCOUNTER 2021-08-28 12:48 | Outpatient (CLI) | payer OTHER, MEDICARE, SELFPAY ==
[2021-08-28] MEDS: lidocaine 1% INJ 20 mL INJECTION (13:25)
[2021-08-28] MEDS: goserelin acetate 10.8 mg Implant SUBCUT (13:25)
[2021-08-28 14:30] LABS: Prostate Specific Antigen < 0.014 ng/mL (0-4)
== END 2021-08-28 12:49 | disposition home or self-care (01) ==
LOC: ONCMED 12:52
PROVIDERS: PCP Family Medicine; Visit Provider Internal Medicine Medical Oncology
DX: C61 Malignant neoplasm of prostate (principal); Z79.818 Long term (current) use of other agents affecting estrogen receptors and estrogen levels
CPT/HCPCS: 36415; 84153; 96402; J9202

== ENCOUNTER → 2021-11-28 09:27 | Outpatient (BNVA) | payer MEDICARE, OTHER, SELFPAY | PROVIDERS: PCP Family Medicine; Referring Provider Urology; Visit Provider Internal Medicine Medical Oncology | DX: R06.00 Dyspnea, unspecified (principal); R00.1 Bradycardia, unspecified | CPT/HCPCS: 99999 ==

== ENCOUNTER 2021-11-28 09:35 | Oncology outpatient (recurring) (ONCR) | payer MEDICARE, OTHER, SELFPAY ==
[2021-11-28 10:04] LABS: Hematocrit 43.8 % (42.0-52.0); Hemoglobin 15.2 g/dL (11.7-16.6); Mean Corpuscular HGB Conc 34.7 g/dL (30.0-36.0); Mean Corpuscular Hemoglobin 30.9 pg (28.0-34.0); Mean Platelet Volume 11.2 fL (7.4-10.4); Platelet Count 156 10^3/cmm (130-400); Red Blood Count 4.92 10^6/uL (4.1-5.3); Red Cell Distribution Width 11.9 % (12.1-15.1); White Blood Count 5.1 10^3/uL (4.0-10.0)
[2021-11-28 10:31] LABS: Absolute Eosinophils 0.1 10^3/cmm (0.0-0.7); Absolute Neutrophil 2.8 10^3/cmm (1.4-6.5); Absolute Segmented Neutrophil 2.8 10/cmm (1.6-7.1); Band Neutrophils Absolute 0.1 10^3/cmm (0.0-1.2); Eosinophils 3 %; Lymphocytes 33 %; Lymphocytes Absolute 1.9 10^3/cmm (1.2-3.4); Monocytes Absolute 0.3 10^3/cmm (0.1-0.6); Platelet Estimate Normal (Normal); Segmented Neutrophils 54 %; Total Cells Counted 100 (0-100)
[2021-11-28 10:42] LABS: Alanine Aminotransferase 27 U/L (0-41); Albumin Level 4.5 g/dL (3.5-5.2); Alkaline Phosphatase 66 IU/L (40-130); Anion Gap 13.1 (5-19); Aspartate Amino Transferase 21 U/L (0-40); Blood Urea Nitrogen 17 mg/dL (8-23); Calcium 9.4 mg/dL (8.5-10.5); Carbon Dioxide 25 mmol/L (22-29); Chloride 102 mmol/L (98-107); Glucose 98 mg/dL (65-115); Osmolality Calculated 284 mOsm/kg (285-295); Potassium 4.1 mmol/L (3.5-5.1); Sodium 136 mmol/L (136-145); Testosterone Total 2.5 ng/dL (193-740); Total Bilirubin 0.7 mg/dL (0.15-1.2); Total Protein 6.5 g/dL (6.6-8.7)
[2021-11-28 10:45] LABS: Prostate Specific Antigen < 0.014 ng/mL (0-4)
[2021-11-28] MEDS: lidocaine 1% INJ 20 mL SUBCUT (12:48)
[2021-11-28] MEDS: denosumab 60 mg SDV SUBCUT (12:52)
[2021-11-28] MEDS: goserelin acetate 10.8 mg Implant SUBCUT (13:00)
[2021-12-01 11:37] LABS: Vit D 1,25 (Oh)2, Total 35 pg/mL (18-72); Vit D2 1,25 (Oh)2 <8 pg/mL; Vit D3 1,25 (Oh)2 35 pg/mL
== END 2021-12-26 23:59 | disposition home or self-care (01) ==
PROVIDERS: PCP Family Medicine; Referring Provider Urology; Visit Provider Internal Medicine Medical Oncology
DX: C61 Malignant neoplasm of prostate (principal); C77.5 Secondary and unspecified malignant neoplasm of intrapelvic lymph nodes; M81.0 Age-related osteoporosis without current pathological fracture; E55.9 Vitamin D deficiency, unspecified; Z79.899 Other long term (current) drug therapy; Z79.818 Long term (current) use of other agents affecting estrogen receptors and estrogen levels; R00.1 Bradycardia, unspecified; R00.0 Tachycardia, unspecified
CPT/HCPCS: 36415; 80053; 82652; 84153; 84403; 85007; 85027; 93225; 93226; 96372; 96402; 99204; 99214; J0897; J9202

== ENCOUNTER 2022-01-09 06:50 | Outpatient (CLI) | payer OTHER, SELFPAY ==
--- NOTE | 2022-01-09 07:15 | USCV_ITS ---
Timmy Byron Age: 76 Gender: M : 1945 Exam Date: 01/09/2022 07:02 Ordering Phys: Brandan Dumont M.D ([email or web address]) Technologist: Exam Location: [facility] – [place] Indication: DYSPENEA BP: 130 / 75 HR: 56 Rhythm: Sinus Technical Quality: Adequate MEASUREMENTS (Male / Female) Normal Values 2D ECHO LV Diastolic Diameter PLAX 3.9 cm 4.2 - 5.9 / 3.9 - 5.3 cm LV Systolic Diameter PLAX 2.5 cm IVS Diastolic Thickness 0.9 cm 0.6 - 1.0 / 0.6 - 0.9 cm IVS Systolic Thickness 1.3 cm LVPW Diastolic Thickness 1.1 cm 0.6 - 1.0 / 0.6 - 0.9 cm LVPW Systolic Thickness 1.3 cm LVOT Diameter 2.2 cm LV Ejection Fraction 2D Teich 64.5 % LV Ejection Fraction MOD 2C 66.2 % LV Ejection Fraction 2C AL 67.1 % LA Diameter 4.1 cm Aorta at Sinotubular Diameter 3.0 cm IVC Diameter 1.3 cm M-MODE LV Diastolic Diameter MM 3.7 cm 4.2 - 5.9 / 3.9 - 5.3 cm LV Systolic Diameter MM 2.7 cm LV Ejection Fraction MM Teich 53.9 % IVS Diastolic Thickness MM 1.0 cm 0.6 - 1.0 / 0.6 - 0.9 cm IVS Systolic Thickness MM 1.4 cm LVPW Diastolic Thickness MM 1.1 cm 0.6 - 1.0 / 0.6 - 0.9 cm LVPW Systolic Thickness MM 1.4 cm RV Diastolic Diameter MM 2.4 cm Aortic Annulus Diameter 3.9 cm LA Ao Ratio MM 1.1 MV E Point Septal Separation 1.1 cm DOPPLER AV Peak Velocity 111.0 cm/s LVOT Peak Velocity 85.0 cm/s AV Area Cont Eq vti 3.7 cm squared AV Area Cont Eq pk 2.8 cm squared MV Area PHT 3.5 cm squared Mitral E to A Ratio 0.9 MV E' Velocity 40.0 cm/s Mitral E to MV E' Ratio 7.4 Mitral E to LV E' Lateral Ratio 7.4 Mitral E to LV E' Septal Ratio 7.4 TR Peak Velocity 234.3 cm/s TR Peak Gradient 22.0 mmHg Right Atrial Pressure 3.0 mmHg Pulmonary Artery Systolic Pressu 25.0 mmHg PV Peak Velocity 153.0 cm/s FINDINGS Left Ventricle Normal left ventricular size. LV systolic function is normal with EF of 55-60%. No regional wall motion abnormalities. Grade 1 diastolic dysfunction Right Ventricle The right ventricle is normal in size and function. Right Atrium The right atrium is normal in size. Left Atrium The left atrium is dilated Mitral Valve Structurally normal mitral valve without significant stenosis or prolapse. There is no mitral regurgitation. Aortic Valve Grossly normal without significant stenosis. There is mild aortic regurgitation. Tricuspid Valve Structurally normal tricuspid valve without significant stenosis . Mild tricuspid regurgitation. Pulmonary artery systolic pressure is normal. Pulmonic Valve Not well visualized Pericardium Normal pericardium without effusion. Aorta Normal ascending aorta dimension. IVC CONCLUSIONS LV systolic function is normal with EF of 55-60% Grade 1 diastolic dysfunction Left atrial enlargement Mild aortic regurgitation Mild tricuspid regurgitation No comparison studies are available Brandan Dumont MD (Electronically Signed) Final Date: 13 January 2022 09:30 S
== END 2022-01-09 06:51 | disposition home or self-care (01) ==
LOC: RAD 06:51
PROVIDERS: PCP Family Medicine; Visit Provider Internal Medicine
DX: R06.00 Dyspnea, unspecified (principal)
CPT/HCPCS: 93306

== ENCOUNTER → 2022-02-22 15:14 | Outpatient (BNVA) | payer OTHER, SELFPAY | PROVIDERS: PCP Family Medicine; Visit Provider Internal Medicine | DX: R00.1 Bradycardia, unspecified (principal); R06.00 Dyspnea, unspecified | CPT/HCPCS: 99213; 99214 ==

== ENCOUNTER 2022-03-01 08:32 | Oncology outpatient (recurring) (ONCR) | payer MEDICARE, OTHER, SELFPAY ==
[2022-03-01 10:04] LABS: Prostate Specific Antigen < 0.014 ng/mL (0-4)
[2022-03-01] MEDS: lidocaine 1% INJ 20 mL SUBCUT (10:32)
[2022-03-01 10:35] VITALS: BP 115/75; PULSE 53; RESP 18; TEMP 36.5; O2SAT 97
[2022-03-01] MEDS: denosumab 60 mg SDV SUBCUT (10:36)
[2022-03-01] MEDS: goserelin acetate 10.8 mg Implant SUBCUT (11:00)
--- NOTE | 2022-03-01 13:50 | PC.NURSE ---
Patient came in for the MOB lab draw for psa with Dr Hoang reviewing his results with the approval for the xgeva and zoladex injections whiche were given with no issues and he was getting the scheduled for next follow up.[email or web address]
== END 2022-03-28 23:59 | disposition home or self-care (01) ==
LOC: ONCMED 08:32
PROVIDERS: PCP Family Medicine; Referring Provider Urology; Visit Provider Internal Medicine Medical Oncology
DX: Z51.11 Encounter for antineoplastic chemotherapy (principal); C61 Malignant neoplasm of prostate; Z79.899 Other long term (current) drug therapy; Z79.818 Long term (current) use of other agents affecting estrogen receptors and estrogen levels
CPT/HCPCS: 36415; 84153; 96372; 96401; 96402; J0897; J9202

== ENCOUNTER 2022-04-15 08:53 | Emergency (ER) | payer MEDICARE, OTHER, SELFPAY ==
[2022-04-15 09:04] VITALS: BP 120/79; PULSE 72; RESP 21; TEMP 36.6; O2SAT 96; BMI 35.9
--- NOTE | 2022-04-15 09:24 | W.ED.GENADLT ---
HPI - General Adult General: Chief complaint: General Medical Stated complaint: tick bite, ear pain Time Seen by Provider: 04/15/22 08:54 Source: patient Mode of arrival: ambulatory Limitations: no limitations History of Present Illness: 36-year-old male who states that he been having some right ear pain over the last 2 to 3 days he states [facility] started on amox[facility] he states amoxicillin has been causing him to have decreased appetite along with nausea and vomiting really hurting his stomach. States he has also has had some vertigo he states especially with standing he states its improved with rest. Denies any fever states he has had a recent tick bite as well. Associated symptoms: Reports nausea and vomiting; Deny chest pain, dyspnea or rash Review of Systems Const: Denies: fever(s), chills, body aches or change in appetite Eyes: Denies: blurry vision or eye discomfort ENMT: Reports: ear or mastoid pain Card: Denies: chest pain Resp: Denies: dyspnea GI: Reports: nausea and vomiting; Denies: abdominal pain or diarrhea : Denies: dysuria Musc: Denies: neck pain or back pain Skin/Breast: Denies: rash Neuro: Reports: vertigo Psych: Denies: depression Conor/Lymph: Denies: easy bruising All/Imm: Denies: urticaria PFSH ED PFSH: Medical History Allergic rhinitis At risk for osteoporosis Degenerative arthritis Malignant neoplasm of prostate Stage KYLE - T2b, N1, M0, G7 Personal history of irradiation Vitamin D deficiency, unspecified Surgical History H/O cataract removal with insertion of prosthetic lens left History of esophageal surgery removal of pouch per pt S/P total knee arthroplasty (~02/2021) Left total knee arthroplasty Family History Mother , at age 79 Cancer esophagus Father , at age 88 No problems noted. Social History Smoking and tobacco status: never smoked Alcohol intake: never Marital status: Current occupational status: employed History of recent travel: No Physical Exam Const: COMMON NORMALS: no acute distress, patient oriented x3 and healthy appearing HENMT: COMMON NORMALS: normocephalic and atraumatic HEAD & SCALP: normocephalic and atraumatic OTHER: Otitis externa noted to right ear canal no tenderness over mastoid unable to see his tympanic membrane due to the swelling Eye: COMMON NORMALS: Equal, round and reactive pupils present and EOMs intact bilaterally PUPIL: Yes Equal, round and reactive pupils present Neck/C-Spine: COMMON NORMALS: full ROM and supple Chest: COMMONS NORMALS: normal inspection of the chest and normal palpation of entire chest wall Resp: COMMON NORMALS: normal respiratory effort, No retractions, No use of accessory muscles and clear to auscultation bilaterally AUSCULTATION: clear to auscultation bilaterally Cardio: COMMON NORMALS: regular rate, regular rhythm and No murmurs present (Cardio) RATE: regular rate RHYTHM: regular rhythm GI: COMMON NORMALS: Normal to inspection, nondistended, normoactive bowel sounds present, Soft to palpation, non-tender and no masses PALPATION: Yes Soft to palpation Extremity: COMMON NORMALS: normal to inspection and full ROM Neuro: COMMON NORMALS: patient oriented x3, moves all extremities and no focal motor deficits Psych: COMMON NORMALS: mental status grossly normal, Normal thought process present and cooperative THOUGHT PROCESS: Normal thought process present Skin: COMMON NORMALS: no rashes or lesions noted and no wounds GENERAL SKIN EXAM: no rashes or lesions noted Course Vital Signs: Vital signs: Vital Signs Temperature 97.8 F 04/15/22 09:04 Pulse Rate 72 04/15/22 09:04 Respiratory Rate 21 H 04/15/22 09:04 Blood Pressure 120/79 04/15/22 09:04 Pulse Oximetry 96 04/15/22 09:04 Oxygen Delivery Me thod 04/15/22 09:04 MDM - General Adult Medical Decision Making Patient presents here with otitis externa along with some vertigo vertigo is likely due to his ear infection he has no signs of a stroke here we will switch him to doxycycline stop the amoxicillin give him Zofran for his nausea we will place him on ofloxacin otic as well he is to follow-up PCP and return if worsening. Discharge Plan Discharge Patient Disposition: Home Clinical Impression: Otitis externa, Vertigo Condition: Stable Prescriptions: New ondansetron 4 mg tablet,disintegrating 4 mg PO Q6H PRN (Reason: nausea and vomiting) Qty: 14 0RF meclizine 25 mg tablet 25 mg PO TID PRN (Reason: dizziness) Qty: 20 0RF doxycycline hyclate 100 mg capsule 100 mg PO BID 7 Days Qty: 14 0RF ofloxacin 0.3 % drops 10 drp otic (ear) DAILY 7 Days Qty: 10 0RF No Action bicalutamide 50 mg tablet 50 mg PO DAILY Zoladex 10.8 mg implant SUBCUT .every 3 mo multivitamin Capsule 1 cap PO DAILY (DME) Custom Molded Arch supports See Rx Instructions .Route .MEDSUPPLY Qty: 1 0RF Rx Instructions: As directed by [facility] ergocalciferol (vitamin D2) 1,250 mcg (50,000 unit) capsule 1,250 mcg PO .monthly Qty: 3 2RF Discharge Orders: Discharge ED (Routine); Ordered 04/15/22 Ordered By: Luna Villegas Referrals: Sonu Stark MD [Primary Care Provider] - 1-3 days Discharge Diet: Advance as tolerated Discharge Activity: Resume usual activity Patient Instructions: Otitis Externa - Adult, Vertigo (ED) Coding Level of Care Code ED [place] for Trey Braga
[2022-04-15] MEDS: meclizine 25 mg tablet 50 MG PO (09:35)
[2022-04-16 11:07] LABS: Lyme AB Screen <0.90 index
[2022-04-19 17:43] LABS: E. Chaffeensis AB IGG <1:64; E. Chaffeensis AB IGM <1:20
[2022-04-24 17:33] LABS: RMSF IGG DETECTED; RMSF IGM NOT DETECTED
== END 2022-04-15 09:46 | disposition home or self-care (01) ==
PROVIDERS: Emergency Provider Emergency Medicine; PCP Family Medicine
DX: H60.91 Unspecified otitis externa, right ear (principal); R42 Dizziness and giddiness; Z85.46 Personal history of malignant neoplasm of prostate
CPT/HCPCS: 36415; 86618; 86666; 86757; 99283; J8597

== ENCOUNTER 2022-05-28 11:58 | Oncology outpatient (recurring) (ONCR) | payer MEDICARE, OTHER, SELFPAY ==
[2022-05-28] MEDS: denosumab 60 mg SDV SUBCUT (14:31)
[2022-05-28] MEDS: leuprolide 22.5 mg Kit IM (14:32)
[2022-05-28 15:11] LABS: Basophils % 0.4 %; Eosinophils # 0.3 10^3/uL (0.0-0.8); Eosinophils % 6.7 %; Hematocrit 42.5 % (42.0-52.0); Hemoglobin 14.3 g/dL (11.7-16.6); Lymphocytes # 1.7 10^3/uL (0.8-4.8); Lymphocytes % 32.9 %; Mean Corpuscular HGB Conc 33.6 g/dL (30.0-36.0); Mean Corpuscular Hemoglobin 30.9 pg (28.0-34.0); Mean Corpuscular Volume 91.8 fl (80-94); Mean Platelet Volume 11.6 fL (7.4-10.4); Monocytes # 0.5 10^3/uL (0.2-0.9); Monocytes % 8.9 %; Neutrophils # 2.57 10^3/uL (1.8-7.7); Neutrophils % 50.9 %; Nucleated Red Blood Cells % 0 %; Platelet Count 159 10^3/cmm (130-400); Red Blood Count 4.63 10^6/uL (4.1-5.3); Red Cell Distribution Width 12.5 % (12.1-15.1); White Blood Count 5.1 10^3/uL (4.0-10.0)
[2022-05-28 15:34] LABS: 25 Hydroxy Vitamin D 47 ng/mL (30-100)
[2022-05-28 15:44] LABS: Alanine Aminotransferase 20 U/L (0-41); Alkaline Phosphatase 54 U/L (40-130); Anion Gap 14.1 (5-19); Aspartate Amino Transferase 16 U/L (0-40); Blood Urea Nitrogen 17 mg/dL (8-23); Calcium 9.4 mg/dL (8.5-10.5); Carbon Dioxide 24 mmol/L (22-29); Chloride 104 mmol/L (98-107); Globulin 2.2 g/dL (1.3-4.6); Glucose 90 mg/dL (65-115); Osmolality Calculated 287 mOsm/kg (285-295); Potassium 4.1 mmol/L (3.5-5.1); Sodium 138 mmol/L (136-145); Total Bilirubin 0.5 mg/dL (0.15-1.2); Total Protein 6.2 g/dL (6.6-8.7)
[2022-05-28 15:46] LABS: Prostate Specific Antigen < 0.014 ng/mL (0-4)
[2022-05-28 15:47] LABS: Testosterone Total < 2.5 ng/dL (193-740)
== END 2022-05-28 23:59 | disposition home or self-care (01) ==
PROVIDERS: PCP Family Medicine; Referring Provider Urology; Visit Provider Internal Medicine Medical Oncology
DX: C61 Malignant neoplasm of prostate; Z79.899 Other long term (current) drug therapy; Z79.818 Long term (current) use of other agents affecting estrogen receptors and estrogen levels
CPT/HCPCS: 36415; 80053; 82306; 84153; 84403; 85025; 96372; 96402; 99214; J0897; J9217

== ENCOUNTER 2022-07-20 21:28 | Emergency (ER) | payer MEDICARE, OTHER, SELFPAY ==
[2022-07-20 21:37] VITALS: BP 155/101; PULSE 72; RESP 22; TEMP 37.1; O2SAT 98; BMI 35.2
--- NOTE | 2022-07-20 21:45 | XRR_ITS ---
PROCEDURE INFORMATION: Exam: XR Chest Exam date and time: 07/20/2022 9:48 PM Age: 77 years old Clinical indication: Other: Aspiration; Additional info: Foreign body aspiration TECHNIQUE: Imaging protocol: Radiologic exam of the chest. Views: 2 views. COMPARISON: CR XR chest 1V [id number] 06/02/2018 10:00 AM FINDINGS: Lungs: Right lower lobe atelectasis. Pleural spaces: Unremarkable. No pleural effusion. No pneumothorax. Heart/Mediastinum: Cardiomegaly. Bones/joints: Unremarkable. XR/XR chest 2V* [id number] IMPRESSION: 1. Negative for infiltrate. 2. Cardiomegaly. 3. Right lower lobe atelectasis.
--- NOTE | 2022-07-20 21:45 | ED_ITS ---
HPI - General Adult General: Chief complaint: Airway/Esophagus Foreign Body Stated complaint: choked on a pill Time Seen by Provider: 07/20/22 21:41 History of Present Illness: 77-year-old male patient comes in today for complaints of aspiration of pill. Patient was taking his vitamins about 30 to 40 minutes prior to arrival to the ER and accidentally aspirated 1. Patient reports coughing up a large pill fragment just prior to evaluation and reports feeling better now. Patient appears nontoxic. Patient appears no acute distress. Associated symptoms: Reports dyspnea Review of Systems Resp: Reports: dyspnea and pain on inspiration [facility] ED PFSH: Medical History (Updated 07/20/22 @ 22:09 by YAIR Cristobal) Allergic rhinitis At risk for osteoporosis Degenerative arthritis Personal history of irradiation Prostate cancer Vitamin D deficiency, unspecified Surgical History H/O cataract removal with insertion of prosthetic lens left History of esophageal surgery removal of pouch per pt S/P total knee arthroplasty (~02/2021) Left total knee arthroplasty Family History Mother , at age 79 Cancer esophagus Father , at age 88 No problems noted. Social History Smoking and tobacco status: never smoked Alcohol intake: never Marital status: Current occupational status: employed History of recent travel: No Physical Exam Const: COMMON NORMALS: alert HENMT: COMMON NORMALS: normocephalic HEAD & SCALP: normocephalic Resp: COMMON NORMALS: normal respiratory effort and clear to auscultation bilaterally AUSCULTATION: clear to auscultation bilaterally Cardio: COMMON NORMALS: regular rate RATE: regular rate Extremity: COMMON NORMALS: full ROM Neuro: SENSORIUM/ORIENTATION: Yes alert Skin: COMMON NORMALS: turgor normal GENERAL SKIN EXAM: turgor normal Course Vital Signs: Vital signs: Vital Signs Temperature 98.7 F 07/20/22 21:37 Pulse Rate 72 07/20/22 21:37 Respiratory Rate 22 H 07/20/22 21:37 Blood Pressure 155/101 07/20/22 21:37 Pulse Oximetry 98 07/20/22 21:37 Oxygen Delivery Me thod 07/20/22 21:37 MDM - General Adult Medical Decision Making Patient comes in for evaluation of aspiration of pill. Incident occurred about 1/2-hour prior to arrival to the ER. Patient reports coughing up a pill fragment prior to evaluation. Since then patient has coughed up some discolored mucus. Patient reports improvement of symptoms since arrival to the ER and coughing up the pill fragments and discolored mucus. Differential diagnosis includes aspiration into airway, retained foreign body, pneumonia. Chest x-ray noted no foreign body or signs of pneumonia at this time. Reviewed x-rays with patient with recommendations for further treatment and evaluation and need for return. Patient reported understanding and agreed to plan. Lab Data Radiology Impressions Chest X-Ray 07/20/22 21:45 IMPRESSION: 1. Negative for infiltrate. 2. Cardiomegaly. 3. Right lower lobe atelectasis. Discharge Plan Discharge Patient Disposition: Home Clinical Impression: Aspiration into airway Qualifiers: Encounter type: initial encounter Qualified Code(s): T17.908A - Unspecified foreign body in respiratory tract, part unspecified causing other injury, initial encounter Condition: Stable Prescriptions: No Action bicalutamide 50 mg tablet 50 mg PO DAILY Zoladex 10.8 mg implant SUBCUT .every 3 mo multivitamin Capsule 1 cap PO DAILY (DME) Custom Molded Arch supports See Rx Instructions .Route .MEDSUPPLY Qty: 1 0RF Rx Instructions: As directed by [facility] ergocalciferol (vitamin D2) 1,250 mcg (50,000 unit) capsule 1,250 mcg PO .monthly Qty: 3 2RF ondansetron 4 mg tablet,disintegrating 4 mg PO Q6H PRN (Reason: nausea and vomiting) Qty: 14 0RF meclizine 25 mg tablet 25 mg PO TID PRN (Reason: dizziness) Qty: 20 0RF Compazine 10 mg tablet 10 mg PO Q4H PRN (Reason: Mild Nausea) Qty: 30 3RF lorazepam 1 mg tablet 0.5 - 1 mg PO Q6H PRN (Reason: Severe Nausea) Qty: 30 3RF Discharge Orders: Discharge ED (Routine); Ordered 07/20/22 Ordered By: Ollie Melgoza Referrals: Sonu Stark MD [Primary Care Provider] - Discharge Diet: Usual diet Discharge Activity: Increase activity as tolerated Patient Instructions: Aspiration Precautions (ED) Activity Restrictions/Additional Instructions: Drink plenty of fluids. Monitor for worsening symptoms such as increased shortness of breath, high fever greater than 100.4, or increasing chest pain. Return to the ER for the symptoms. Follow-up with primary care as needed. Coding Level of Care Code ED Bead Trimmer for Trey Fwd Exam Detailed
== END 2022-07-20 22:14 | disposition home or self-care (01) ==
PROVIDERS: Emergency Provider Nurse Practitioner Family; PCP Family Medicine
DX: T17.998A Other foreign object in respiratory tract, part unspecified causing other injury, initial encounter (principal); X58.XXXA Exposure to other specified factors, initial encounter; Z85.46 Personal history of malignant neoplasm of prostate
CPT/HCPCS: 71046; 99283

== ENCOUNTER 2022-08-20 11:44 | Oncology outpatient (recurring) (ONCR) | payer MEDICARE, OTHER, SELFPAY ==
[2022-08-20 12:35] VITALS: BP 136/81; PULSE 60; RESP 16; TEMP 35.7; O2SAT 98
[2022-08-20] MEDS: leuprolide 22.5 mg Kit IM (12:40)
[2022-08-20 12:48] LABS: Basophils % 0.8 %; Eosinophils # 0.3 10^3/uL (0.0-0.8); Hematocrit 44.6 % (42.0-52.0); Hemoglobin 14.9 g/dL (11.7-16.6); Lymphocytes # 1.7 10^3/uL (0.8-4.8); Lymphocytes % 33.1 %; Mean Corpuscular HGB Conc 33.4 g/dL (30.0-36.0); Mean Corpuscular Hemoglobin 30.2 pg (28.0-34.0); Mean Corpuscular Volume 90.5 fl (80-94); Mean Platelet Volume 11.4 fL (7.4-10.4); Monocytes # 0.5 10^3/uL (0.2-0.9); Monocytes % 9.2 %; Neutrophils # 2.61 10^3/uL (1.8-7.7); Neutrophils % 51.9 %; Nucleated Red Blood Cells % 0 %; Platelet Count 150 10^3/cmm (130-400); Red Blood Count 4.93 10^6/uL (4.1-5.3); Red Cell Distribution Width 11.8 % (12.1-15.1)
[2022-08-20 13:24] LABS: Alanine Aminotransferase 21 U/L (0-41); Albumin Level 4.4 g/dL (3.5-5.2); Alkaline Phosphatase 48 U/L (40-130); Anion Gap 12.5 (5-19); Aspartate Amino Transferase 19 U/L (0-40); Blood Urea Nitrogen 19 mg/dL (8-23); Calcium 9.6 mg/dL (8.5-10.5); Carbon Dioxide 28 mmol/L (22-29); Chloride 100 mmol/L (98-107); Globulin 2.1 g/dL (1.3-4.6); Glucose 86 mg/dL (65-115); Osmolality Calculated 284 mOsm/kg (285-295); Potassium 4.5 mmol/L (3.5-5.1); Sodium 136 mmol/L (136-145); Total Bilirubin 0.7 mg/dL (0.15-1.2); Total Protein 6.5 g/dL (6.6-8.7)
[2022-08-20 13:26] LABS: Prostate Specific Antigen < 0.014 ng/mL (0-4); Testosterone Total < 2.5 ng/dL (193-740)
== END 2022-08-28 23:59 | disposition home or self-care (01) ==
PROVIDERS: PCP Family Medicine; Visit Provider Internal Medicine Medical Oncology
DX: C61 Malignant neoplasm of prostate; Z79.899 Other long term (current) drug therapy; Z79.818 Long term (current) use of other agents affecting estrogen receptors and estrogen levels
CPT/HCPCS: 36415; 80053; 84153; 84403; 85025; 96402; J9217

== ENCOUNTER 2022-11-19 12:14 | Oncology outpatient (recurring) (ONCR) | payer MEDICARE, OTHER, SELFPAY ==
[2022-11-19 13:35] LABS: Basophils % 0.5 %; Eosinophils # 0.2 10^3/uL (0.0-0.8); Eosinophils % 3.9 %; Hemoglobin 14.6 g/dL (11.7-16.6); Lymphocytes # 1.8 10^3/uL (0.8-4.8); Lymphocytes % 28.5 %; Mean Corpuscular Hemoglobin 30.5 pg (28.0-34.0); Mean Platelet Volume 11.2 fL (7.4-10.4); Monocytes # 0.5 10^3/uL (0.2-0.9); Monocytes % 8.5 %; Neutrophils # 3.62 10^3/uL (1.8-7.7); Neutrophils % 58.4 %; Nucleated Red Blood Cells % 0 %; Platelet Count 144 10^3/cmm (130-400); Red Blood Count 4.78 10^6/uL (4.1-5.3); White Blood Count 6.2 10^3/uL (4.0-10.0)
[2022-11-19 14:02] LABS: Alanine Aminotransferase 20 U/L (0-41); Albumin Level 4.3 g/dL (3.5-5.2); Alkaline Phosphatase 52 U/L (40-130); Anion Gap 12.6 (5-19); Aspartate Amino Transferase 18 U/L (0-40); Blood Urea Nitrogen 20 mg/dL (8-23); Calcium 9.5 mg/dL (8.5-10.5); Carbon Dioxide 26 mmol/L (22-29); Chloride 103 mmol/L (98-107); Globulin 2.2 g/dL (1.3-4.6); Glucose 98 mg/dL (65-115); Osmolality Calculated 287 mOsm/kg (285-295); Potassium 4.6 mmol/L (3.5-5.1); Sodium 137 mmol/L (136-145); Testosterone Total 2.5 ng/dL (193-740); Total Bilirubin 0.7 mg/dL (0.15-1.2); Total Protein 6.5 g/dL (6.6-8.7)
[2022-11-19 14:04] LABS: Prostate Specific Antigen < 0.014 ng/mL (0-4)
[2022-11-19] MEDS: leuprolide 22.5 mg Kit IM (15:05)
== END 2022-11-25 23:59 | disposition home or self-care (01) ==
PROVIDERS: PCP Family Medicine; Visit Provider Internal Medicine Medical Oncology
DX: C61 Malignant neoplasm of prostate; Z79.899 Other long term (current) drug therapy; Z79.818 Long term (current) use of other agents affecting estrogen receptors and estrogen levels; C77.5 Secondary and unspecified malignant neoplasm of intrapelvic lymph nodes; E55.9 Vitamin D deficiency, unspecified
CPT/HCPCS: 80053; 84153; 84403; 85025; 96402; 99214; J9217

== ENCOUNTER 2023-02-21 11:48 | Oncology outpatient (recurring) (ONCR) | payer MEDICARE, OTHER, SELFPAY ==
[2023-02-21 11:55] VITALS: BP 121/74; PULSE 60; RESP 18; TEMP 36.1; O2SAT 96
[2023-02-21 12:04] LABS: Basophils % 0.6 %; Eosinophils # 0.3 10^3/uL (0.0-0.8); Eosinophils % 5.5 %; Hematocrit 42.2 % (42.0-52.0); Hemoglobin 14.2 g/dL (11.7-16.6); Lymphocytes # 1.6 10^3/uL (0.8-4.8); Lymphocytes % 33.1 %; Mean Corpuscular HGB Conc 33.6 g/dL (30.0-36.0); Mean Corpuscular Hemoglobin 30.1 pg (28.0-34.0); Mean Corpuscular Volume 89.6 fl (80-94); Mean Platelet Volume 11.2 fL (7.4-10.4); Monocytes # 0.5 10^3/uL (0.2-0.9); Monocytes % 9.4 %; Neutrophils # 2.51 10^3/uL (1.8-7.7); Neutrophils % 51.2 %; Nucleated Red Blood Cells % 0 %; Platelet Count 143 10^3/cmm (130-400); Red Blood Count 4.71 10^6/uL (4.1-5.3); Red Cell Distribution Width 11.9 % (12.1-15.1); White Blood Count 4.9 10^3/uL (4.0-10.0)
[2023-02-21 13:00] LABS: 25 Hydroxy Vitamin D 44 ng/mL (30-100); Alanine Aminotransferase 22 U/L (0-41); Albumin Level 4.3 g/dL (3.5-5.2); Alkaline Phosphatase 63 U/L (40-130); Anion Gap 15.1 (5-19); Aspartate Amino Transferase 19 U/L (0-40); Blood Urea Nitrogen 20 mg/dL (8-23); Calcium 9.4 mg/dL (8.5-10.5); Carbon Dioxide 27 mmol/L (22-29); Chloride 105 mmol/L (98-107); Globulin 1.8 g/dL (1.3-4.6); Glucose 95 mg/dL (65-115); Osmolality Calculated 298 mOsm/kg (285-295); Potassium 4.1 mmol/L (3.5-5.1); Prostate Specific Antigen < 0.014 ng/mL (0-4); Sodium 143 mmol/L (136-145); Total Bilirubin 0.7 mg/dL (0.15-1.2); Total Protein 6.1 g/dL (6.6-8.7)
[2023-02-21 13:43] LABS: Testosterone Total < 2.5 ng/dL (193-740)
[2023-02-21 15:25] VITALS: BP 118/74; PULSE 55; RESP 18; TEMP 36.4; O2SAT 96
[2023-02-21] MEDS: leuprolide 22.5 mg Kit IM (15:28)
== END 2023-02-25 23:59 | disposition home or self-care (01) ==
LOC: ONCMED 11:49
PROVIDERS: Nurse Practitioner Family; PCP Family Medicine; Visit Provider Internal Medicine Medical Oncology
DX: C61 Malignant neoplasm of prostate; Z79.899 Other long term (current) drug therapy; Z79.818 Long term (current) use of other agents affecting estrogen receptors and estrogen levels; C77.5 Secondary and unspecified malignant neoplasm of intrapelvic lymph nodes; Z91.89 Other specified personal risk factors, not elsewhere classified
CPT/HCPCS: 36415; 80053; 82306; 84153; 84403; 85025; 96402; 99214; J9217

== ENCOUNTER 2023-05-16 09:17 | Oncology outpatient (recurring) (ONCR) | payer MEDICARE, OTHER, SELFPAY ==
[2023-05-16 10:29] LABS: Basophils % 0.9 %; Eosinophils # 0.2 10^3/uL (0.0-0.8); Eosinophils % 4.2 %; Hematocrit 43.2 % (37-53); Lymphocytes # 1.5 10^3/uL (0.8-4.8); Lymphocytes % 32.9 %; Mean Corpuscular HGB Conc 33.6 g/dL (30-55); Mean Corpuscular Hemoglobin 30.7 pg (27-33); Mean Corpuscular Volume 91.5 fl (82-101); Mean Platelet Volume 11.1 fL (7.4-10.4); Monocytes # 0.4 10^3/uL (0.2-0.9); Monocytes % 9.7 %; Neutrophils # 2.37 10^3/uL (1.8-7.7); Neutrophils % 52.3 %; Nucleated Red Blood Cells % 0 %; Platelet Count 159 10^3/cmm (157-399); Red Blood Count 4.72 10^6/uL (3.85-5.65); White Blood Count 4.53 10^3/uL (3.29-11.43)
[2023-05-16 10:57] LABS: Alanine Aminotransferase 14 U/L (0-41); Albumin Level 4.3 g/dL (3.5-5.2); Alkaline Phosphatase 80 U/L (40-130); Anion Gap 13.3 (5-19); Aspartate Amino Transferase 19 U/L (0-40); Blood Urea Nitrogen 16 mg/dL (8-23); Calcium 9.9 mg/dL (8.5-10.5); Carbon Dioxide 28 mmol/L (22-29); Chloride 103 mmol/L (98-107); Globulin 2.2 g/dL (1.3-4.6); Glucose 95 mg/dL (65-115); Osmolality Calculated 291 mOsm/kg (285-295); Potassium 4.3 mmol/L (3.5-5.1); Sodium 140 mmol/L (136-145); Testosterone Total 2.5 ng/dL (193-740); Total Bilirubin 0.7 mg/dL (0.15-1.2); Total Protein 6.5 g/dL (6.6-8.7)
[2023-05-16 11:04] LABS: Prostate Specific Antigen < 0.014 ng/mL (0-4)
[2023-05-16] MEDS: denosumab 60 mg SDV SUBCUT (12:05)
[2023-05-16] MEDS: leuprolide 22.5 mg Kit IM (12:07)
== END 2023-05-28 23:59 | disposition home or self-care (01) ==
PROVIDERS: Nurse Practitioner Family; PCP Family Medicine; Visit Provider Internal Medicine Medical Oncology
DX: Z51.11 Encounter for antineoplastic chemotherapy (principal); C61 Malignant neoplasm of prostate; Z79.899 Other long term (current) drug therapy; Z79.818 Long term (current) use of other agents affecting estrogen receptors and estrogen levels
CPT/HCPCS: 36415; 80053; 84153; 84403; 85025; 96402; 99214; J0897; J9217

== ENCOUNTER 2023-08-14 12:58 | Oncology outpatient (recurring) (ONCR) | payer MEDICARE, OTHER, SELFPAY ==
[2023-08-14 13:40] VITALS: BP 135/78; PULSE 68; RESP 16; TEMP 36.6; O2SAT 97
[2023-08-14 13:57] LABS: Basophils % 0.5 %; Eosinophils # 0.2 10^3/uL (0.0-0.8); Eosinophils % 4.2 %; Hematocrit 45.6 % (37-53); Lymphocytes # 1.6 10^3/uL (0.8-4.8); Lymphocytes % 28.3 %; Mean Corpuscular HGB Conc 33.6 g/dL (30-55); Mean Corpuscular Hemoglobin 30.4 pg (27-33); Mean Corpuscular Volume 90.7 fl (82-101); Mean Platelet Volume 10.9 fL (7.4-10.4); Monocytes # 0.5 10^3/uL (0.2-0.9); Monocytes % 8.9 %; Neutrophils # 3.32 10^3/uL (1.8-7.7); Neutrophils % 57.9 %; Nucleated Red Blood Cells % 0 %; Platelet Count 158 10^3/cmm (157-399); Red Blood Count 5.03 10^6/uL (3.85-5.65); Red Cell Distribution Width 12.3 % (12.1-15.1); White Blood Count 5.73 10^3/uL (3.29-11.43)
[2023-08-14 14:33] LABS: Alanine Aminotransferase 18 U/L (0-41); Albumin Level 4.3 g/dL (3.5-5.2); Alkaline Phosphatase 56 U/L (40-130); Anion Gap 13.5 (5-19); Aspartate Amino Transferase 18 U/L (0-40); Blood Urea Nitrogen 22 mg/dL (8-23); Calcium 9.7 mg/dL (8.5-10.5); Carbon Dioxide 27 mmol/L (22-29); Chloride 103 mmol/L (98-107); Globulin 2.3 g/dL (1.3-4.6); Glucose 89 mg/dL (65-115); Osmolality Calculated 291 mOsm/kg (285-295); Potassium 4.5 mmol/L (3.5-5.1); Sodium 139 mmol/L (136-145); Testosterone Total 2.5 ng/dL (193-740); Total Bilirubin 0.7 mg/dL (0.15-1.2); Total Protein 6.6 g/dL (6.6-8.7)
[2023-08-14 14:47] LABS: Prostate Specific Antigen < 0.014 ng/mL (0-4)
[2023-08-14] MEDS: leuprolide 22.5 mg Kit IM (15:31)
[2023-08-14 15:34] VITALS: PULSE 78; RESP 18; TEMP 36.6
== END 2023-08-28 23:59 | disposition home or self-care (01) ==
PROVIDERS: Nurse Practitioner Family; PCP Family Medicine; Visit Provider Internal Medicine Medical Oncology
DX: Z51.11 Encounter for antineoplastic chemotherapy (principal); C61 Malignant neoplasm of prostate; Z79.899 Other long term (current) drug therapy; Z79.818 Long term (current) use of other agents affecting estrogen receptors and estrogen levels
CPT/HCPCS: 36415; 80053; 84153; 84403; 85025; 96402; 99214; J9217

== ENCOUNTER 2023-11-14 09:05 | Oncology outpatient (recurring) (ONCR) | payer MEDICARE, OTHER, SELFPAY ==
[2023-11-06 13:10] LABS: Basophils % 0.7 %; Eosinophils # 0.2 10^3/uL (0.0-0.8); Eosinophils % 4.3 %; Lymphocytes # 1.7 10^3/uL (0.8-4.8); Lymphocytes % 31.5 %; Mean Corpuscular HGB Conc 33.8 g/dL (30-55); Mean Corpuscular Volume 91.6 fl (82-101); Mean Platelet Volume 10.9 fL (7.4-10.4); Monocytes # 0.4 10^3/uL (0.2-0.9); Monocytes % 8.2 %; Neutrophils # 2.95 10^3/uL (1.8-7.7); Neutrophils % 55.3 %; Nucleated Red Blood Cells % 0 %; Platelet Count 156 10^3/cmm (157-399); Red Blood Count 4.91 10^6/uL (3.85-5.65); Red Cell Distribution Width 12.4 % (12.1-15.1); White Blood Count 5.34 10^3/uL (3.29-11.43)
[2023-11-06 13:35] LABS: Alanine Aminotransferase 25 U/L (0-41); Albumin Level 4.4 g/dL (3.5-5.2); Alkaline Phosphatase 55 U/L (40-130); Anion Gap 13.3 (5-19); Aspartate Amino Transferase 23 U/L (0-40); Blood Urea Nitrogen 18 mg/dL (8-23); Calcium 9.2 mg/dL (8.5-10.5); Carbon Dioxide 27 mmol/L (22-29); Chloride 104 mmol/L (98-107); Globulin 2.4 g/dL (1.3-4.6); Glucose 75 mg/dL (65-115); Osmolality Calculated 291 mOsm/kg (285-295); Potassium 4.3 mmol/L (3.5-5.1); Sodium 140 mmol/L (136-145); Testosterone Total 2.5 ng/dL (193-740); Total Bilirubin 1.2 mg/dL (0.15-1.2); Total Protein 6.8 g/dL (6.6-8.7)
[2023-11-06 13:40] LABS: Prostate Specific Antigen < 0.014 ng/mL (0-4)
[2023-11-06] MEDS: leuprolide 22.5 mg Kit IM (15:38)
[2023-11-14 09:11] VITALS: BP 164/81; PULSE 60; RESP 16; TEMP 36.3; O2SAT 96
[2023-11-14] MEDS: denosumab 60 mg SDV SUBCUT (09:14)
== END 2023-11-26 23:59 | disposition home or self-care (01) ==
PROVIDERS: PCP Family Medicine; Visit Provider Internal Medicine Medical Oncology
DX: C61 Malignant neoplasm of prostate; Z79.899 Other long term (current) drug therapy; Z53.9 Procedure and treatment not carried out, unspecified reason
CPT/HCPCS: 36415; 80053; 84153; 84403; 85025; 96372; 96402; 99213; J0897; J9217

== ENCOUNTER 2023-12-04 14:56 | Outpatient (CLI) | payer MEDICARE, OTHER, SELFPAY ==
--- NOTE | 2023-12-04 15:15 | USCV_ITS ---
Byron Warner Age: 78 Gender: M : 1945 Exam Date: 12/04/2023 15:03 Ordering Phys: Brandan Dumont M.D ([email or web address]) Technologist: CT Exam Location: [facility] [place] Indication: ao regurg BP: 136 / 82 HR: 58 Rhythm: Sinus Technical Quality: Adequate MEASUREMENTS (Male / Female) Normal Values 2D ECHO LVOT Diameter 2.5 cm LV Ejection Fraction MOD 2C 69.3 % LV Ejection Fraction 2C AL 69.7 % LA Diameter 5.5 cm RA Systolic Volume 4C AL 95.4 ml RA Systolic Volume 4C MOD 89.3 ml LA Sys Volume AL 86.4 cm cubed LA Sys Volume Index AL 37.3 cm cubed/m squared Aorta at Sinotubular Diameter 2.6 cm IVC Diameter 2.1 cm M-MODE LA Ao Ratio MM 1.9 AV Cusp Separation MM 2.9 cm DOPPLER AV Peak Velocity 125.0 cm/s LVOT Peak Velocity 100.0 cm/s AV Area Cont Eq vti 4.3 cm squared AV Area Cont Eq pk 3.8 cm squared MV Peak Velocity 88.0 cm/s MV Area PHT 2.9 cm squared Mitral E to A Ratio 0.5 TV Peak Velocity 207.0 cm/s TR Peak Velocity 307.0 cm/s TR Peak Gradient 37.7 mmHg TV Peak E Velocity 88.0 cm/s Right Atrial Pressure 3.0 mmHg Pulmonary Artery Systolic Pressu 40.7 mmHg PV Peak Velocity 136.5 cm/s FINDINGS Left Ventricle Left ventricle is normal in size. LV systolic function is normal with EF of 60 to 65%. No regional wall motion abnormalities are seen. Grade 1 diastolic dysfunction Right Ventricle Normal in size and function Right Atrium Dilated Left Atrium Dilated Mitral Valve Structurally normal mitral valve. Trace mitral regurgitaiton. Aortic Valve Aortic valve is thickened. No significant stenosis. Mild aortic regurgitation. Tricuspid Valve Mild tricuspid regurgitation. RVSP is 40 to 45 mmHg. This is consistent with mild pulmonary hypertension. Pulmonic Valve Mild pulmonic regurgitation. Pericardium Normal Aorta normal in size IVC Appears to be normal CONCLUSIONS LV systolic function is normal with EF of 60-65% Biatrial dilation Trace mitral regurgitation Mild aortic regurgitation Mild tricuspid regurgitation Mild pulmonary hypertension Mild pulmonic regurgitation Compared to prior echocardiogram from 2021, no significant changes are seen Brandan Dumont MD (Electronically Signed) Final Date: 18 Dec 2023 14:27 S
== END 2023-12-04 14:57 | disposition home or self-care (01) ==
LOC: RAD 14:56
PROVIDERS: PCP Family Medicine; Visit Provider Internal Medicine
DX: I35.1 Nonrheumatic aortic (valve) insufficiency (principal); I07.1 Rheumatic tricuspid insufficiency; I27.20 Pulmonary hypertension, unspecified; I37.1 Nonrheumatic pulmonary valve insufficiency
CPT/HCPCS: 93306

== ENCOUNTER 2024-01-29 12:01 | Oncology outpatient (recurring) (ONCR) | payer MEDICARE, OTHER, SELFPAY ==
[2024-01-29 12:44] LABS: Basophils % 0.4 %; Eosinophils # 0.1 10^3/uL (0.0-0.8); Eosinophils % 1.9 %; Hematocrit 44.7 % (37-53); Lymphocytes # 1.5 10^3/uL (0.8-4.8); Lymphocytes % 22.2 %; Mean Corpuscular HGB Conc 33.6 g/dL (30-55); Mean Corpuscular Hemoglobin 30.5 pg (27-33); Mean Platelet Volume 11.2 fL (7.4-10.4); Monocytes # 0.5 10^3/uL (0.2-0.9); Neutrophils % 67.2 %; Nucleated Red Blood Cells % 0 %; Platelet Count 168 10^3/cmm (157-399); Red Blood Count 4.91 10^6/uL (3.85-5.65); Red Cell Distribution Width 12.2 % (12.1-15.1); White Blood Count 6.71 10^3/uL (3.29-11.43)
[2024-01-29 13:14] LABS: Alanine Aminotransferase 20 U/L (0-41); Albumin Level 4.3 g/dL (3.5-5.2); Alkaline Phosphatase 71 U/L (40-130); Anion Gap 14.6 (5-19); Aspartate Amino Transferase 19 U/L (0-40); Blood Urea Nitrogen 24 mg/dL (8-23); Calcium 9.3 mg/dL (8.5-10.5); Carbon Dioxide 24 mmol/L (22-29); Chloride 106 mmol/L (98-107); Globulin 2.2 g/dL (1.3-4.6); Glucose 92 mg/dL (65-115); Osmolality Calculated 294 mOsm/kg (285-295); Potassium 4.6 mmol/L (3.5-5.1); Sodium 140 mmol/L (136-145); Testosterone Total 2.5 ng/dL (193-740); Total Protein 6.5 g/dL (6.6-8.7)
[2024-01-29 13:16] LABS: Prostate Specific Antigen < 0.014 ng/mL (0-4)
[2024-01-29] MEDS: leuprolide 22.5 mg Kit IM (14:40)
== END 2024-02-26 23:59 | disposition home or self-care (01) ==
PROVIDERS: Nurse Practitioner Family; PCP Family Medicine; Visit Provider Internal Medicine Medical Oncology
DX: Z79.899 Other long term (current) drug therapy (principal); C61 Malignant neoplasm of prostate; Z51.11 Encounter for antineoplastic chemotherapy; Z92.3 Personal history of irradiation; Z79.818 Long term (current) use of other agents affecting estrogen receptors and estrogen levels
CPT/HCPCS: 36415; 80053; 84153; 84403; 85025; 96402; 99214; J9217

== ENCOUNTER → 2024-02-20 12:45 | Outpatient (BNVA) | payer MEDICARE, OTHER, SELFPAY | PROVIDERS: PCP Family Medicine; Visit Provider Internal Medicine | DX: R00.1 Bradycardia, unspecified (principal); R06.00 Dyspnea, unspecified | CPT/HCPCS: 99213 ==

== ENCOUNTER → 2024-03-18 09:29 | Outpatient (BNVA) | payer OTHER, MEDICARE, SELFPAY | PROVIDERS: PCP Family Medicine; Visit Provider Specialist | DX: M25.561 Pain in right knee (principal); G89.29 Other chronic pain | CPT/HCPCS: 73560; 73565; 99204 ==

== ENCOUNTER 2024-04-22 07:27 | Oncology outpatient (recurring) (ONCR) | payer OTHER, MEDICARE, SELFPAY ==
[2024-04-22 07:58] LABS: Basophils % 0.4 %; Eosinophils # 0.2 10^3/uL (0.0-0.8); Hematocrit 44.2 % (37-53); Lymphocytes # 1.2 10^3/uL (0.8-4.8); Lymphocytes % 22.4 %; Mean Corpuscular Hemoglobin 30.2 pg (27-33); Mean Corpuscular Volume 91.5 fl (82-101); Mean Platelet Volume 10.9 fL (7.4-10.4); Monocytes # 0.5 10^3/uL (0.2-0.9); Monocytes % 8.5 %; Neutrophils # 3.43 10^3/uL (1.8-7.7); Neutrophils % 64.5 %; Nucleated Red Blood Cells % 0 %; Platelet Count 152 10^3/cmm (157-399); Red Blood Count 4.83 10^6/uL (3.85-5.65); Red Cell Distribution Width 12.3 % (12.1-15.1); White Blood Count 5.31 10^3/uL (3.29-11.43)
[2024-04-22 08:28] LABS: Alanine Aminotransferase 18 U/L (0-41); Albumin Level 4.1 g/dL (3.5-5.2); Alkaline Phosphatase 62 U/L (40-130); Blood Urea Nitrogen 14 mg/dL (8-23); Calcium 9.1 mg/dL (8.5-10.5); Carbon Dioxide 26 mmol/L (22-29); Chloride 105 mmol/L (98-107); Globulin 2.4 g/dL (1.3-4.6); Glucose 75 mg/dL (65-115); Osmolality Calculated 291 mOsm/kg (285-295); Sodium 141 mmol/L (136-145); Testosterone Total 2.5 ng/dL (193-740); Total Bilirubin 0.9 mg/dL (0.15-1.2); Total Protein 6.5 g/dL (6.6-8.7)
[2024-04-22 08:32] LABS: Aspartate Amino Transferase 21 U/L (0-40); Prostate Specific Antigen < 0.014 ng/mL (0-4)
[2024-04-22] MEDS: leuprolide 22.5 mg Kit IM (09:07)
== END 2024-04-27 23:59 | disposition home or self-care (01) ==
PROVIDERS: Nurse Practitioner Family; PCP Family Medicine; Visit Provider Internal Medicine Medical Oncology
DX: Z51.11 Encounter for antineoplastic chemotherapy (principal); C61 Malignant neoplasm of prostate; Z79.899 Other long term (current) drug therapy; Z92.3 Personal history of irradiation; Z79.818 Long term (current) use of other agents affecting estrogen receptors and estrogen levels
CPT/HCPCS: 36415; 80053; 84153; 84403; 85025; 96402; 99214; J9217

== ENCOUNTER 2024-07-15 12:15 | Oncology outpatient (recurring) (ONCR) | payer MEDICARE, OTHER, SELFPAY ==
[2024-07-15 12:51] LABS: Basophils % 0.8 %; Eosinophils # 0.2 10^3/uL (0.0-0.8); Eosinophils % 3.3 %; Hematocrit 41.2 % (37-53); Lymphocytes # 1.5 10^3/uL (0.8-4.8); Lymphocytes % 29.5 %; Mean Corpuscular Hemoglobin 30.2 pg (27-33); Mean Corpuscular Volume 88.8 fl (82-101); Mean Platelet Volume 11.2 fL (7.4-10.4); Monocytes # 0.4 10^3/uL (0.2-0.9); Monocytes % 8.7 %; Neutrophils # 2.82 10^3/uL (1.8-7.7); Neutrophils % 57.3 %; Nucleated Red Blood Cells % 0 %; Platelet Count 150 10^3/cmm (157-399); Red Blood Count 4.64 10^6/uL (3.85-5.65); Red Cell Distribution Width 12.1 % (12.1-15.1); White Blood Count 4.92 10^3/uL (3.29-11.43)
[2024-07-15 13:19] LABS: Alanine Aminotransferase 17 U/L (0-41); Albumin Level 4.1 g/dL (3.5-5.2); Alkaline Phosphatase 67 U/L (40-130); Anion Gap 16.4 (5-19); Aspartate Amino Transferase 21 U/L (0-40); Blood Urea Nitrogen 15 mg/dL (8-23); Calcium 9.2 mg/dL (8.5-10.5); Carbon Dioxide 25 mmol/L (22-29); Chloride 101 mmol/L (98-107); Creatinine Clr Calc Pharmacy 91.0988; Globulin 1.9 g/dL (1.3-4.6); Glucose 92 mg/dL (65-115); Osmolality Calculated 286 mOsm/kg (285-295); Potassium 4.4 mmol/L (3.5-5.1); Sodium 138 mmol/L (136-145); Total Bilirubin 0.8 mg/dL (0.15-1.2)
[2024-07-15 13:20] LABS: Prostate Specific Antigen < 0.014 ng/mL (0-4); Testosterone Total < 2.5 ng/dL (193-740)
[2024-07-15] MEDS: leuprolide 22.5 mg Kit IM (16:21)
== END 2024-07-28 23:59 | disposition home or self-care (01) ==
PROVIDERS: Nurse Practitioner Family; PCP Family Medicine; Visit Provider Internal Medicine Medical Oncology
DX: Z51.11 Encounter for antineoplastic chemotherapy (principal); C34.11 Malignant neoplasm of upper lobe, right bronchus or lung; Z79.899 Other long term (current) drug therapy; C61 Malignant neoplasm of prostate
CPT/HCPCS: 36415; 80053; 84153; 84403; 85025; 96402; 99214; J9217

== ENCOUNTER 2024-10-14 13:32 | Oncology outpatient (recurring) (ONCR) | payer MEDICARE, OTHER, SELFPAY ==
[2024-10-14 14:58] LABS: Basophils % 0.8 %; Eosinophils # 0.2 10^3/uL (0.0-0.8); Eosinophils % 4.6 %; Hematocrit 41.5 % (37-53); Lymphocytes # 1.4 10^3/uL (0.8-4.8); Lymphocytes % 27.2 %; Mean Corpuscular Hemoglobin 29.7 pg (27-33); Mean Platelet Volume 11.4 fL (7.4-10.4); Monocytes # 0.4 10^3/uL (0.2-0.9); Monocytes % 8.7 %; Neutrophils # 2.95 10^3/uL (1.8-7.7); Neutrophils % 58.5 %; Nucleated Red Blood Cells % 0 %; Platelet Count 156 10^3/cmm (157-399); Red Blood Count 4.61 10^6/uL (3.85-5.65); Red Cell Distribution Width 12.5 % (12.1-15.1); White Blood Count 5.04 10^3/uL (3.29-11.43)
[2024-10-14 15:30] LABS: Alanine Aminotransferase 22 U/L (0-41); Albumin Level 4.2 g/dL (3.5-5.2); Alkaline Phosphatase 78 U/L (40-130); Aspartate Amino Transferase 21 U/L (0-40); Blood Urea Nitrogen 21 mg/dL (8-23); Calcium 9.4 mg/dL (8.5-10.5); Carbon Dioxide 26 mmol/L (22-29); Chloride 104 mmol/L (98-107); Globulin 2.3 g/dL (1.3-4.6); Glucose 87 mg/dL (65-115); Osmolality Calculated 294 mOsm/kg (285-295); Sodium 141 mmol/L (136-145); Total Bilirubin 0.8 mg/dL (0.15-1.2); Total Protein 6.5 g/dL (6.6-8.7)
[2024-10-14 15:32] LABS: Prostate Specific Antigen < 0.014 ng/mL (0-4); Testosterone Total < 2.5 ng/dL (193-740)
[2024-10-14] MEDS: leuprolide 22.5 mg Kit IM (15:46)
== END 2024-10-26 23:59 | disposition home or self-care (01) ==
PROVIDERS: Nurse Practitioner; PCP Family Medicine; Visit Provider Internal Medicine
DX: Z51.11 Encounter for antineoplastic chemotherapy (principal); Z79.818 Long term (current) use of other agents affecting estrogen receptors and estrogen levels; C61 Malignant neoplasm of prostate; R59.0 Localized enlarged lymph nodes; Z92.3 Personal history of irradiation; Z79.899 Other long term (current) drug therapy
CPT/HCPCS: 36415; 80053; 84153; 84403; 85025; 96402; 99213; J9217

== ENCOUNTER 2025-01-13 09:42 | Oncology outpatient (recurring) (ONCR) | payer MEDICARE, OTHER, SELFPAY ==
[2025-01-13 09:54] LABS: Basophils % 0.6 %; Eosinophils # 0.3 10^3/uL (0.0-0.8); Eosinophils % 5.1 %; Hematocrit 42.7 % (37-53); Lymphocytes # 1.7 10^3/uL (0.8-4.8); Lymphocytes % 32.6 %; Mean Corpuscular HGB Conc 34.4 g/dL (30-55); Mean Corpuscular Hemoglobin 30.2 pg (27-33); Mean Corpuscular Volume 87.9 fl (82-101); Mean Platelet Volume 11.2 fL (7.4-10.4); Monocytes # 0.5 10^3/uL (0.2-0.9); Monocytes % 8.7 %; Neutrophils # 2.81 10^3/uL (1.8-7.7); Neutrophils % 52.8 %; Nucleated Red Blood Cells % 0 %; Platelet Count 139 10^3/cmm (157-399); Red Blood Count 4.86 10^6/uL (3.85-5.65); Red Cell Distribution Width 12.3 % (12.1-15.1); White Blood Count 5.31 10^3/uL (3.29-11.43)
[2025-01-13 10:17] LABS: Alanine Aminotransferase 23 U/L (0-41); Albumin Level 4.3 g/dL (3.5-5.2); Alkaline Phosphatase 88 U/L (40-130); Anion Gap 15.3 (5-19); Aspartate Amino Transferase 23 U/L (0-40); Blood Urea Nitrogen 17 mg/dL (8-23); Calcium 9.7 mg/dL (8.5-10.5); Carbon Dioxide 24 mmol/L (22-29); Chloride 105 mmol/L (98-107); Globulin 2.5 g/dL (1.3-4.6); Glucose 96 mg/dL (65-115); Lactate Dehydrogenase 148 U/L (135-225); Osmolality Calculated 291 mOsm/kg (285-295); Potassium 4.3 mmol/L (3.5-5.1); Sodium 140 mmol/L (136-145); Total Bilirubin 0.9 mg/dL (0.15-1.2); Total Protein 6.8 g/dL (6.6-8.7)
[2025-01-13 10:19] LABS: Prostate Specific Antigen < 0.014 ng/mL (0-4)
[2025-01-13] MEDS: leuprolide 22.5 mg Kit IM (12:56)
== END 2025-01-25 23:59 | disposition home or self-care (01) ==
PROVIDERS: PCP Family Medicine; Visit Provider Internal Medicine
DX: Z53.9 Procedure and treatment not carried out, unspecified reason; Z51.11 Encounter for antineoplastic chemotherapy; C61 Malignant neoplasm of prostate; R59.0 Localized enlarged lymph nodes; Z92.3 Personal history of irradiation; Z79.899 Other long term (current) drug therapy; Z91.89 Other specified personal risk factors, not elsewhere classified
CPT/HCPCS: 36415; 80053; 83615; 84153; 84403; 85025; 96401; 99213; J9217

== ENCOUNTER → 2025-02-18 13:10 | Outpatient (BNVA) | payer MEDICARE, OTHER, SELFPAY | PROVIDERS: PCP Family Medicine; Visit Provider Internal Medicine | DX: R00.1 Bradycardia, unspecified (principal); R06.09 Other forms of dyspnea | CPT/HCPCS: 99213 ==

== ENCOUNTER 2025-04-14 11:03 | Oncology outpatient (recurring) (ONCR) | payer MEDICARE, OTHER, SELFPAY ==
[2025-04-14 11:33] LABS: Hematocrit 41.9 % (37-53); Hemoglobin 14.10 g/dL (11.27-16.99); Mean Corpuscular HGB Conc 33.7 g/dL (30-55); Mean Corpuscular Hemoglobin 30.1 pg (27-33); Mean Corpuscular Volume 89.3 fl (82-101); Nucleated Red Blood Cells % 0 %; Platelet Count 141 10^3/cmm (157-399); Red Blood Count 4.69 10^6/uL (3.85-5.65); White Blood Count 5.81 10^3/uL (3.29-11.43)
[2025-04-14 12:03] LABS: Alanine Aminotransferase 22 U/L (0-41); Albumin Level 4.3 g/dL (3.5-5.2); Alkaline Phosphatase 79 U/L (40-130); Anion Gap 14.4 (5-19); Aspartate Amino Transferase 19 U/L (0-40); Blood Urea Nitrogen 21 mg/dL (8-23); Calcium 9.6 mg/dL (8.5-10.5); Carbon Dioxide 26 mmol/L (22-29); Chloride 105 mmol/L (98-107); Creatinine Clr Calc Pharmacy 90.7208; Globulin 2.4 g/dL (1.3-4.6); Glucose 93 mg/dL (65-115); Osmolality Calculated 295 mOsm/kg (285-295); Potassium 4.4 mmol/L (3.5-5.1); Sodium 141 mmol/L (136-145); Total Protein 6.7 g/dL (6.6-8.7)
[2025-04-14 12:09] LABS: Prostate Specific Antigen < 0.014 ng/mL (0-4)
[2025-04-14] MEDS: leuprolide 22.5 mg Kit IM (12:40)
== END 2025-04-27 23:59 | disposition home or self-care (01) ==
PROVIDERS: Nurse Practitioner Family; PCP Family Medicine; Visit Provider Internal Medicine
DX: Z51.11 Encounter for antineoplastic chemotherapy (principal); C61 Malignant neoplasm of prostate; C77.5 Secondary and unspecified malignant neoplasm of intrapelvic lymph nodes; Z92.3 Personal history of irradiation; Z79.899 Other long term (current) drug therapy; Z79.818 Long term (current) use of other agents affecting estrogen receptors and estrogen levels
CPT/HCPCS: 36415; 80053; 84153; 84403; 85025; 96402; 99214; J9217

== ENCOUNTER 2025-07-20 10:18 | Oncology outpatient (recurring) (ONCR) | payer MEDICARE, OTHER, SELFPAY ==
[2025-07-20 10:51] LABS: Hematocrit 42.6 % (37-53); Hemoglobin 14.30 g/dL (11.27-16.99); Mean Corpuscular HGB Conc 33.6 g/dL (30-55); Mean Corpuscular Hemoglobin 30.4 pg (27-33); Mean Corpuscular Volume 90.4 fl (82-101); Nucleated Red Blood Cells % 0 %; Platelet Count 139 10^3/cmm (157-399); Red Blood Count 4.71 10^6/uL (3.85-5.65); White Blood Count 4.49 10^3/uL (3.29-11.43)
[2025-07-20 11:27] LABS: Alanine Aminotransferase 23 U/L (0-41); Albumin Level 4.1 g/dL (3.5-5.2); Alkaline Phosphatase 80 U/L (40-130); Anion Gap 10.0 (5-19); Aspartate Amino Transferase 23 U/L (0-40); Blood Urea Nitrogen 14 mg/dL (8-23); Calcium 9.1 mg/dL (8.5-10.5); Carbon Dioxide 30 mmol/L (22-29); Chloride 104 mmol/L (98-107); Globulin 1.9 g/dL (1.3-4.6); Glucose 81 mg/dL (65-115); Osmolality Calculated 290 mOsm/kg (285-295); Potassium 4.0 mmol/L (3.5-5.1); Sodium 140 mmol/L (136-145); Total Protein 6.0 g/dL (6.6-8.7)
[2025-07-20 11:29] LABS: Prostate Specific Antigen < 0.014 ng/mL (0-4)
[2025-07-20] MEDS: leuprolide 22.5 mg Kit IM (12:09)
== END 2025-07-28 23:59 | disposition home or self-care (01) ==
PROVIDERS: Internal Medicine; PCP Family Medicine; Visit Provider Internal Medicine
DX: Z51.11 Encounter for antineoplastic chemotherapy (principal); C61 Malignant neoplasm of prostate; C77.5 Secondary and unspecified malignant neoplasm of intrapelvic lymph nodes; Z92.3 Personal history of irradiation; Z79.899 Other long term (current) drug therapy; Z79.818 Long term (current) use of other agents affecting estrogen receptors and estrogen levels
CPT/HCPCS: 80053; 84153; 84403; 85025; 96402; 99214; J9217